=== PATIENT | male | born 1955 | race Caucasian/White ===

== ENCOUNTER 2023-09-24 17:04 | Observation (INO) | payer MEDICARE, SELFPAY ==
[2023-09-24] VITALS (10 sets, daily range): BP systolic 141–165; BP diastolic 85–91; PULSE 90–93; RESP 14–19; TEMP 36.1–36.9; O2SAT 91–97; BMI 34.8; BMI 34.1
--- NOTE | 2023-09-24 | FLU_PTH ---
PATHOLOGY RESULTS PATIENT: ETHEL GODWIN LOC: ICU U#:[id number] AGE/SX: 68/M ROOM: [place] [address] RE09/24/[address]: Dr. Amrita Valente DO : 1955 BED: 1 DIS: 09/25/2023 SPEC #: [id number] RECD: 09/28/23 07:40 STATUS: SYED REQ #: [id number] GERMAN: 09/24/23 00:[address]: Amrita Valente DEPT: CYTOLOGY RECD BY: Angelica Tran ENTERED: 09/28/23 07:41 SP TYPE: Fluid OTHR DR: Dr. Edward Del Angel, DO MD Dr. Inderjit Allen, DO Dr. Guy Kaur, DO MD Dr. Ollie Thomas MD Christina Muller, [employer] REPRESENTATIVE-C Tissues: THORACIC FLUID Procedures: Special Stain Group II Mucicarmine Stain (control) Surgery Specimen Level IV Cytospin Fluid HEADER OPERATION: Thoracentesis PRE-OP DIAGNOSIS: Pleural effusion TISSUE SUBMITTED: Thoracentesis fluid for cytology DIAGNOSIS CYTOLOGY Thoracentesis fluid for cytology (cytospin and cell block): Negative for malignant cells. See comment. AM:michelle 09/29/2023 COMMENT Immunohistochemistry ([id number]) supports the above diagnosis. Mucin stain with matched control was used in the evaluation of this case. CYTOLOGY STUDY Slides are reviewed. CYTOLOGY GROSS Received is 1000 ml of dark red cloudy fluid labeled with the patient's name and and designated per the requisition as thoracentesis. Submitted for cytology preparation including cell block. / michelle 09/28/2023 TC:5 CPT: 54015, 27596, 39407
--- NOTE | 2023-09-24 | IMM_PTH ---
PATHOLOGY RESULTS PATIENT: ETHEL GODWIN LOC: ICU U#:[id number] AGE/SX: 68/M ROOM: [place] [address] RE09/24/[address]: Dr. Amrita Valente DO : 1955 BED: 1 DIS: 09/25/2023 SPEC #: [id number] RECD: 09/29/23 14:42 STATUS: SOUT REQ #: [id number] GERMAN: 09/24/23 00:[address]: Amrita Valente DEPT: IMMUNOHISTOCHEMISTRY RECD BY: Pauline Cassidy ENTERED: 09/29/23 14:43 SP TYPE: IMMUNO OTHR DR: Dr. Edward Del Angel, DO MD Dr. Inderjit Allen, DO Dr. Guy Kaur, DO MD Dr. Ollie Thomas MD Christina Muller, [employer]ADLE-C Tissues: THORACIC FLUID Procedures: Boubacar Ret (add) CK20 (add) CK5-6 (add) CK7 (add) KI-67 (add) P53 (add) Pankeratin (initial) P40 (add) CD68 (ADD) PHYSICIAN & INSTITUTION [place] [id number] SPECIMEN INFORMATION: Tissue Source: Thoracentesis fluid Clinical Info: Pleural effusion Specimen Number: [id number] CPT code: 31093, 75064 x8 METHODOLOGY: Deparaffinized sections of prefer/formalin-fixed tissue or PAP/DQ stained slides are incubated with monoclonal/polyclonal antibodies/oligonucleotide probes. Localization is made via biotin free immunoperoxidase method. Appropriate controls are performed and reacted as expected. Results on target cell population are indicated in the following table: RESULTS: ANTIBODY / CLONE RESULT AE1-3 (AE1/AE3/PCK26) positive CK7 (OV-TL12/30) positive, rare CK20 (KS20.8) negative CD68 (KP-1) positive CALRET (polyclonal) positive CK5-6 (D5 & 1684) positive P40 (BC28) negative P53 (DO-7) negative Ki-67 (30-9) negative These tests were developed and their performance characteristics determined by [facility]. They may not have been cleared or approved by the U.S. Food and Drug Administration. The FDA has determined that such clearance or approval is not necessary. The above immunohistochemical/dualISH markers are ordered and reviewed by the Pathologist. INTERPRETATION: Thoracentesis fluid (cell block): No evidence of malignancy. AM:michelle 09/30/2023
--- NOTE | 2023-09-24 17:25 | EDS_ITS ---
HPI History of Present Illness Chief Complaint: Shortness of Breath [facility] Medical History (Updated 09/24/23 @ 17:25 by Arianna Sparks) Enlarged prostate Hyperlipidemia Hypertension Right rib fracture Home Medications albuterol sulfate 90 mcg/actuation aerosol inhaler inhalation PRN shortness of breath or wheezing 09/24/23 [History Last Taken Unknown] amlodipine 10 mg-benazepril 40 mg capsule 1 cap PO DAILY 09/24/23 [History Last Taken Unknown] aspirin 81 mg capsule 81 mg PO DAILY 09/24/23 [History Last Taken Unknown] azithromycin 250 mg tablet 250 mg PO DAILY 09/24/23 [History Last Taken Unknown] prednisone 10 mg tablet mg 09/24/23 [History Last Taken Unknown] tamsulosin 0.4 mg capsule 0.4 mg PO Q24H 09/24/23 [History Last Taken Unknown] Allergy/AdvReac Type Severity Reaction Status Date / Time ibuprofen [From Motrin] Allergy Hives Verified 09/24/23 17:05 Social History Smoking Status: Former smoker EXAM Physical Exam Const Vital Signs: 09/24/23 17:05 09/24/23 17:04 09/24/23 17:47 Temperature 97 F L Temperature Source Temporal Pulse Rate 90 Respiratory Rate 14 Respiratory Effort Normal Non-Labored Respiratory Depth Normal Respiratory Pattern Normal Blood Pressure 141/87 H Blood Pressure Mean 105 Pulse Ox 94 94 Oxygen Delivery Method Room Air Room Air Room Air [facility] MDM Narrative Medical decision making narrative: HISTORY OF PRESENT ILLNESS: 68-year-old male here with shortness of breath. States he had x-ray earlier today was told by his doctor he has fluid in the right lung. No shortness of breath and cough is additional symptoms. States he broke 7 ribs in July had a partial lung collapse on that side. REVIEW OF SYSTEMS: Pertinent positives: Shortness of breath, cough Pertinent negatives: Fever, fatigue chest pain, syncope PHYSICAL EXAM: Nursing triage notes reviewed, Vital signs reviewed Constitutional: please see mdm HENT: MMM Eyes: Pupils equal round and reactive to light, Extraocular muscles intact Neck: No stridor, no JVD, full neck ROM Lungs: diminished breath sounds of the right lung base n, No wheezing or rales. No increased work of breathing, no conversational dyspnea, no accessory muscle use, no nasal flaring. No respiratory distress noted Heart: Regular rate and rhythm, No murmurs, No rubs and No gallops, 2+ distal pulses (radial, femoral, posterior tibial) in all extremities Abdomen: Soft, there is no tenderness, rigidity, rebound or guarding, no obvious peritoneal signs, no palpable pulsatile abdominal masses, no auscultated abdominal bruit : No CVAT Extremities: No edema Neuro: No focal neurological deficits, cranial nerves II through XII intact, 5/5 strength in all extremities. Intact sensation to light touch in all extremities, 2+ reflexes bilateral patella tendons. Normal gait. No ataxia. Skin: No rash or lesions noted MEDICAL DECISION MAKING: Chief Complaint: Shortness of breath, cough External records reviewed: Chest x-ray from today reviewed showed right-sided pleural effusion, right middle lower lobe, right-sided rib fractures Factors affecting care: enLarged prostate right rib fracture, hyperlipidemia, hypertension, Social determinants of health: none History obtained from others: none Consults: none [facility] Narrative: The patient was initially hemodynamically stable, afebrile, [id number]. Diminished sounds over right lung base. I considered the following differential diagnosis: Pleural effusion, mass, pneumonia I obtained labs rule out signs of anemia, signs of systemic inflammation. I obtained a CT scan to rule out mass or other etiology causing the pleural effusion ALL IMAGES (IF OBTAINED) HAVE BEEN PERSONALLY REVIEWED AND INTERPRETED BY MYSELF. EKG with normal sinus rhythm, right deviation, right bundle branch block, no obvious STEMI CBC without leukocytosis, severe anemia, no thrombocytopenia. BMP without evidence of significant electrolyte abnormalities, no anion gap, no acute kidney injury. Coags not obvious coagulopathy High-sensitivity troponin is negative, no evidence of myocardial ischemia BNP within normal limits this is not suggestive of heart failure CT scan of the patient's chest showed no evidence of mass. The synthesis of the patient's history, physical exam, labs images suggest right-sided pleural effusion of unknown cause could be traumatic. No sign of mass on CT. Patient was ambulated with noted hypoxia. Given hypoxia be admitted. Did discuss the case with Dr. Cruz (critical care physician). He recommended checking coags and admitting the patient and he will be more than happy to do an inpatient thoracentesis. I discussed this with the hospitalist Dr. Del Angel. The patient and/or family, caregivers express understanding. The patient and/or family, caregivers agrees with the plan. Shared decision making: I will have a discussion with the patient and or visitors regarding risk/benefits of further testing or admission. They will be made aware of of the risk/benefits inherent in this decision they will be given the opportunity to voice understanding. Total critical care time today provided was at least 0 minutes. This excludes separately billable procedures. Critical care time (if documented) is secondary to the patient having high probability of clinically significant/life threatening deterioration in the patient's condition which required my urgent intervention. Impression: 1. Hypoxia 2. Right pleural effusion Dispo: Admit to [facility] Lab Data Labs: Laboratory Results - last 24 hr 09/24/23 17:28 WBC 8.2 RBC 4.67 Hgb 15.0 Hct 43.9 MCV 94.0 MCH 32.1 H MCHC 34.2 RDW Std Deviation 39.8 RDW Coeff of Namrata 11.5 L Plt Count 282 MPV 10.1 Immature Gran % (Auto) 0.400 Neut % (Auto) 90.7 H Lymph % (Auto) 7.4 L Catron % (Auto) 1.2 Eos % (Auto) 0.1 Baso % (Auto) 0.2 Absolute Neuts (auto) 7.4 Absolute Lymphs (auto) 0.61 L Nucleated RBC % 0 PT 13.7 INR 1.1 APTT 31.8 Sodium 139 Potassium 3.9 Chloride 106 Carbon Dioxide 27.0 Anion Gap 6 BUN 13 Creatinine 0.83 Estim Creat Clear Calc 91.98 Est GFR (MDRD) Af Amer 119 Est GFR (MDRD) Non-Af 98 BUN/Creatinine Ratio 15.6 Glucose 190 H Calcium 9.6 Troponin I High Sens 5 B-Natriuretic Peptide 8.5 Radiography Diagnostic Testing: Clinical Impression(s) from Imaging Studies Chest CT 09/24/23 17:47 IMPRESSION: 1. Large right pleural effusion. Associated airspace disease may be atelectasis and/or pneumonia. 2. There are multiple fractures of the right second through ninth ribs and the right 11th rib with early callus formation indicating healing. There are multiple chronic healed fractures of the left-sided ribs. Electronically Signed: Christiano Rivero DO at 18:41 EST , Discharge Plan Triage Chief Complaint: Shortness of Breath ED Provider: Juan Manuel Chong Dx/Rx/DC Orders Prescriptions: No Action amlodipine-benazepril 10-40 mg capsule 1 cap PO DAILY aspirin 81 mg capsule 81 mg PO DAILY tamsulosin 0.4 mg capsule 0.4 mg PO Q24H albuterol sulfate 90 mcg/actuation HFA aerosol inhaler INHALATION PRN (Reason: shortness of breath or wheezing) prednisone 10 mg tablet azithromycin 250 mg tablet 250 mg PO DAILY Primary Care Provider: Guy Kaur Referrals: Guy Kaur DO [Primary Care Provider] -
--- NOTE | 2023-09-24 17:47 | CT_ITS ---
EXAM: CT CHEST WITHOUT INTRAVENOUS CONTRAST CLINICAL INDICATION: right sided pleural effusion TECHNIQUE: Helically acquired images were obtained of the chest without intravenous contrast. This CT exam was performed using one or more of the following dose reduction techniques: automated exposure control, adjustment of the mA and/or kV according to patient size, and/or use of iterative reconstruction technique. COMPARISON: Chest radiograph on the same date. FINDINGS: LUNGS AND PLEURAL SPACES: Large right pleural effusion. Associated airspace disease may be atelectasis and/or pneumonia. The left lung is clear. No mass. HEART: Coronary artery calcifications and/or stents. Heart size is normal. No pericardial effusion. MEDIASTINUM: No significant abnormality. No mediastinal or hilar adenopathy. Esophagus is unremarkable. No hiatal hernia. THYROID: No significant abnormality. No thyroid lesions. BONES/JOINTS: There are multiple fractures of the right second through ninth ribs and the right 11th rib with early callus formation indicating healing. There are multiple chronic healed fractures of the left-sided ribs. No suspicious lytic or blastic abnormality. VASCULATURE: Atherosclerosis of the aorta. ABDOMEN: Left renal cyst for which no follow-up is indicated. CT/Chest without Contrast IMPRESSION: 1. Large right pleural effusion. Associated airspace disease may be atelectasis and/or pneumonia. 2. There are multiple fractures of the right second through ninth ribs and the right 11th rib with early callus formation indicating healing. There are multiple chronic healed fractures of the left-sided ribs. Electronically Signed: Christiano Rivero DO at 18:41 EST ,
[2023-09-24 18:14] LABS: Absolute Lymphocyte Count 0.61 X10^3/uL (0.83-4.51); Absolute Neutrophil Count 7.4 X10^3/uL (2.0-7.7); Basophil# 0.02 X10^3/uL; Basophil% 0.2 % (0-1); Eosinophil# 0.01 X10^3/uL; Eosinophils% 0.1 % (0-5); Hematocrit 43.9 % (40-54); Lymphocyte # 0.61 X10^3/ul (0.83-4.51); Lymphocyte % 7.4 % (19-41); Mean Corp Hgb Conc 34.2 g/dL (32-36); Mean Corpuscular Hgb 32.1 pg (27.0-32.0); Mean Platelet Vol. 10.1 fl (6.2-12.0); Monocyte% 1.2 % (0-10); NRBC Flagged by Analyzer 0 % (0-5); Neutrophil # 7.44 X10^3/uL (2.7-7.7); Neutrophil % 90.7 % (47-70); Platelet Count 282 K/mm3 (150-450); RBC Distribution Width CV 11.5 % (11.6-14.6); RBC Distribution Width SD 39.8 fl (35.1-43.9); Red Blood Count 4.67 M/mm3 (4.6-6.2); White Blood Count 8.2 K/mm3 (4.4-11.0)
[2023-09-24 18:33] LABS: Anion Gap 6 (5-15); BUN 13 mg/dL (7-18); BUN/Creat Ratio 15.6 RATIO (10-20); Calcium,Total 9.6 mg/dL (8.5-10.1); Chloride 106 mmol/L (98-107); Creatinine, Serum 0.83 mg/dL (0.70-1.30); EST Glomerular Filtration Rate 98 mL/min (>60); Est Glom Filt Rate - Afr Amer 119 mL/min (>60); Estimated Creatinine Clearance 91.98 ml/min; Glucose 190 mg/dL (74-106); Potassium 3.9 mmol/L (3.5-5.1); Sodium Level 139 mmol/L (136-145); Troponin-I HS 5 pg/mL (3.0-78.0)
[2023-09-24 18:36] LABS: BNP,B-Type NATRIURETIC PEPTIDE 8.5 pg/mL (0-100)
[2023-09-24 18:48] LABS: International Normalized Ratio 1.1; Prothrombin Time (Protime)PT. 13.7 SECONDS (11.7-14.9)
[2023-09-24 18:51] LABS: Partial Thromboplast Time 31.8 Seconds (24.1-36.2)
--- NOTE | 2023-09-24 19:15 | PCM.HP.STD ---
HPI - General General Date of Admission: 09/24/23 Date of Service: 09/24/23 Chief Complaint: Shortness of breath with exertion HPI Narrative ETHEL GODWIN, is a 68 M who presented to [facility] ED on 09/24/2023 with worsening shortness of breath on exertion. Patient seen at bedside in the ED, present. Patient suffered right-sided rib fractures reportedly from ribs 3 through 9 back in July after a fall. Patient and were in [place] at the time, which is where they originally from. They went to an ED in [place], where he was diagnosed with rib fractures. No surgical intervention was needed and patient was discharged from the ED. Patient and returned to [place] shortly after that. They state that for the first few weeks, the patient was in bed or in his chair at home, was not able to do much at all for himself due to significant right-sided pain. However, he has had good improvement over the last 2 to 3 weeks. This week he was able to drive himself to see his PCP in [place], and he has been able to maneuver the steps without significant issue. He developed shortness of breath with exertion over the last few days, and it worsened to the point where he felt like he needed to come into the ED for further evaluation. On my interview, patient was sitting uncomfortably in bed, conversing normally, in no acute distress. He was satting in the high 90s on 2 L nasal cannula at rest, no increased work of breathing noted. Patient denies any fevers or chills, chest pain at rest, abdominal pain or discomfort. Denies any history of heart failure. Patient has no other acute concerns at this time. [facility] Medical History (Updated 09/24/23 @ 20:[address] Edward Del Angel, ) Enlarged prostate Hyperlipidemia Hypertension Right rib fracture Home Medications albuterol sulfate 90 mcg/actuation aerosol inhaler inhalation PRN shortness of breath or wheezing 09/24/23 [History Last Taken Unknown] amlodipine 10 mg-benazepril 40 mg capsule 1 cap PO DAILY 09/24/23 [History Last Taken Unknown] aspirin 81 mg capsule 81 mg PO DAILY 09/24/23 [History Last Taken Unknown] azithromycin 250 mg tablet 250 mg PO DAILY 09/24/23 [History Last Taken Unknown] prednisone 10 mg tablet mg 09/24/23 [History Last Taken Unknown] tamsulosin 0.4 mg capsule 0.4 mg PO Q24H 09/24/23 [History Last Taken Unknown] Allergy/AdvReac Type Severity Reaction Status Date / Time ibuprofen [From Motrin] Allergy Hives Verified 09/24/23 17:05 Social History Smoking Status: Former smoker ROS Constitutional Constitutional: Denies chills, fatigue, fever(s) or weakness Eyes Eyes: Denies change in vision ENT HEENT: Denies sinus pressure Cardiovascular Cardiovascular: Reports dyspnea on exertion; Denies chest pain, edema, lightheadedness, orthopnea or rapid heart rate Respiratory/Chest Respiratory/Chest: Denies cough, productive cough, shortness of breath at rest or wheezing Gastrointestinal Gastrointestinal: Denies abdominal pain Genitourinary Genitourinary: Denies dysuria Musculoskeletal Musculoskeletal: Reports other Details: Right-sided lateral rib pain ; Denies back pain Neurologic Neurologic: Denies dizziness, focal weakness or headache(s) Vital Signs Vital Signs Vital Signs: 09/24/23 17:05 09/24/23 17:04 09/24/23 17:47 Temperature 97 F L Temperature Source Temporal Pulse Rate 90 Respiratory Rate 14 Respiratory Effort Normal Non-Labored Respiratory Depth Normal Respiratory Pattern Normal Blood Pressure 141/87 H Blood Pressure Mean 105 Pulse Ox 94 94 Oxygen Delivery Method Room Air Room Air Room Air Weight Weight: 113.2 kg Body Mass Index (BMI) 34.8 Physical Exam Const alert, oriented x3, no apparent distress, healthy appearing and well nourished Constitutional Narrative: Pleasant elderly male, obese, sitting up comfortably in bed, conversing normally, no acute distress. General Appearance: cooperative, comfortable, well kempt and well developed HEENT normocephalic, head/scalp atraumatic, hearing grossly normal bilaterally, nasal mucous membranes and turbinates normal and moist oral mucous membranes Eyes PERRL, EOMs intact bilaterally and conjunctivae normal Neck full ROM, no lymphadenopathy and supple Lymph Lymphatic: no lymphadenopathy noted Chest Chest Narrative: Mild tenderness to palpation in right lateral rib area diffusely. Resp Resp Narrative: Significantly decreased to absent breath sounds in right lower lung. Otherwise, good air movement throughout. Satting in high 90s on 2 L nasal cannula, no increased work of breathing noted. Cardio regular rate, regular rhythm, no murmurs and peripheral pulses 2+ throughout GI normal to inspection, nondistended, normoactive bowel sounds, soft to palpation, non-tender and non-distended Back/Spine normal ROM Extremity normal to inspection, full ROM and no pedal edema Skin no rashes or lesions noted Neuro moves all extremities and no focal motor deficits Speech: speech normal Psych mental status grossly normal Results Lab / Micro Data 09/24/23 17:28 09/24/23 17:28 Labs: Laboratory Results - last 24 hr 09/24/23 17:28: WBC 8.2, RBC 4.67, Hgb 15.0, Hct 43.9, MCV 94.0, MCH 32.1 H, MCHC 34.2, RDW Std Deviation 39.8, RDW Coeff of Namrata 11.5 L, Plt Count 282, MPV 10.1, Immature Gran % (Auto) 0.400, Neut % (Auto) 90.7 H, Lymph % (Auto) 7.4 L, Ford % (Auto) 1.2, Eos % (Auto) 0.1, Baso % (Auto) 0.2, Absolute Neuts (auto) 7.4, Absolute Lymphs (auto) 0.61 L, Nucleated RBC % 0, PT 13.7, INR 1.1, APTT 31.8, Sodium 139, Potassium 3.9, Chloride 106, Carbon Dioxide 27.0, Anion Gap 6, BUN 13, Creatinine 0.83, Estim Creat Clear Calc 91.98, Est GFR (MDRD) Af Amer 119, Est GFR (MDRD) Non-Af 98, BUN/Creatinine Ratio 15.6, Glucose 190 H, Calcium 9.6, Troponin I High Sens 5, B-Natriuretic Peptide 8.5 Imagaing Radiology Impression Chest CT 09/24/23 17:47 IMPRESSION: 1. Large right pleural effusion. Associated airspace disease may be atelectasis and/or pneumonia. 2. There are multiple fractures of the right second through ninth ribs and the right 11th rib with early callus formation indicating healing. There are multiple chronic healed fractures of the left-sided ribs. Electronically Signed: Christiano Rivero DO at 18:41 EST , Assessment & Plan Assessment/Plan (1) Pleural effusion, right: PLAN: Plan Patient is a 68-year-old male who presented to [facility] ED on 09/24/2023 with worsening shortness of breath on exertion. 1. Large right pleural effusion with exertional hypoxia Very likely secondary to recent right-sided rib fractures. Chest x-ray and CT chest on admit both showed large right pleural effusion with compression atelectasis of right middle and lower lobes. Desaturated to 84% on room air with exertion. ? Admit under observation status to [facility]. Dr. Chong discussed with Dr. Cruz with Pulm, who will be able to do the thoracentesis tomorrow. Patient bedded in ICU per Dr. Cruz's request for ease in having equipment available to complete bedside thoracentesis. Coags ordered. Holding home baby aspirin for tomorrow, okay to restart at discharge. Will likely need ambulatory O2 evaluation prior to discharge to ensure no need for supplemental oxygen going home. 2. Recent right-sided rib fractures Secondary to trauma and July. Chest x-ray and CT chest on admit showed multiple fractures of right second through ninth ribs and right 11th rib with early callus formation indicating healing. ? Patient recovering well, no need for therapy services while here. Will be okay for home on discharge, can follow-up with PCP to discuss outpatient physical therapy as needed. Tylenol as needed for pain management. Chronic medical conditions: ? Obesity: BMI 34 on admit. Encouraged lifestyle modifications. Complicates hospital course, care and prognosis. ? Hypertension: Continue home amlodipine and MOHINI inhibitor. Holding home baby aspirin for tomorrow, okay to restart on discharge. ? BPH: Continue home Flomax. ? Hyperlipidemia: Continue home pravastatin. ? GERD: Continue home PPI. DVT prophylaxis: SCDs CODE STATUS: Full code, verified Expected disposition: Home, 1 to 2 days Total clinical time spent by myself addressing the patient's medical issues, reviewing all the data, and collaborating with patient's care team: 55 minutes. Charges/Coding Visit Charges Inpatient E&M: 48900 Init Hosp L2
--- OUTSIDE RECORDS SUMMARY | 2023-09-24 20:47 | XMS RPT_ITS | CCD ---
Author Name Unknown Address [address] [facility] [address] [place] [address] Organization [facility] Care Team Providers Care Supervisor Fleshing Name Role Phone Unavailable Primary Care Provider UnavailVasyl Matute Primary Care Provider Abdirahman Sierra MD Unavailable Vasyl Glynn DO Primary Care Provider Vasyl Glynn DO Primary Care [facility] er Vasyl Glynn DO Primary Care [facility] er VASYL GLYNN Attending VASYL Bowles Primary Care VASYL Bowles Primary Care VASYL Bowles Referring VASYL Bowles Primary Care VASYL Bowles Referring Sasha GLYNN VASYLGREGORIA BLANCO Attending Sasha olmstead Allergies Allergy Classification Reported Allergen(s) Allergy Type Date of Onset Reaction(s) Facility (11 sources) Ibuprofen; Translations: [IBUPROFEN] Drug Allergy 11-30-2018 Unknown [facility] Work Phone: Medications Current Medications Medication Drug Class(es) Dates Sig (Normalized) Sig (Original) ciprofloxacin 500 mg oral tablet (1 source) Quinolone Antimicrobial take 1 tablet by mouth every twelve hours ciprofloxacin (CIPRO) 500 MG tablet Cipro 500 mg tablet Take 1 tablet every 12 hours by oral route for 14 days. 0 Active docusate sodium 100 mg oral capsule (1 source) Start: 03-22-2023 End: 06-20-2023 take 1 capsule by mouth once daily docusate sodium (COLACE) 100 mg capsule Indications: Chronic constipation Take 1 capsule by mouth once daily. 90 capsule 3 03/22/2023 06/20/2023 Active Completed/Discontinued Medications Medication Drug Class(es) Dates Sig (Normalized) Sig (Original) acetaminophen 325 mg / HYDROcodone bitartrate 7.5 mg oral tablet (3 sources) Opioid Agonist Start: 09-02-2023 End: 09-06-2023 take 1 tablet by mouth every six hours as needed for pain HYDROcodone-Aceta minophen (NORCO) 7.5-325 mg per tablet Indications: Closed fracture of multiple ribs of right side, initial encounter Take 1 tablet by mouth every 6 hours as needed for pain. 16 tablet 0 09/06/2023 Active Problems Active Problems Problem Classification Problem Date Documented Da te Episodic/Chronic Disorders of lipid metabolism (13 sources) Mixed hyperlipidemia; Translations: [Mixed hyperlipidemia] Onset: 10-25-2020 10-25-2020 Chronic Essential hypertension (14 sources) Benign essential hypertension; Translations: [Essential (primary) hypertension] Onset: 10-25-2020 10-25-2020 Chronic Gout and other crystal arthropathies (10 sources) Chronic gouty arthritis; Translations: [Primary chronic gout without tophus of multiple sites] Onset: 10-25-2020 10-25-2020 Chronic Hyperplasia of prostate (15 sources) Benign prostatic hyperplasia; Translations: [Urinary frequency due to benign prostatic hypertrophy] Onset: 11-30-2018 10-25-2020 Chronic Other fractures (1 source) Closed fracture of multiple right ribs; Translations: [Multiple fractures of ribs, right side, initial encounter for closed fracture] 09-03-2023 Episodic Other gastrointestinal disorders (1 source) Chronic constipation; Translations: [Other constipation] Episodic Other nervous system disorders (1 source) Carpal tunnel syndrome; Translations: [Carpal tunnel syndrome, right upper limb] Onset: 12-18-2021 12-18-2021 Chronic Other skin disorders (1 source) Mass of skin; Translations: [Localized swelling, mass and lump, left upper limb] Onset: 12-18-2021 12-18-2021 Episodic Unclassified (6 sources) Patient encounter status; Translations: [Screening for prostate cancer] Onset: 10-25-2020 10-25-2020 Past or Other Problems Problem Classification Problem Date Documented Da te Episodic/Chronic Genitourinary symptoms and ill-defined conditions (2 sources) Nikko hematuria; Translations: [Frequency of micturition] Onset: 11-30-2018 11-30-2018 Episodic Other diseases of kidney and ureters (1 source) Cyst of kidney Onset: 11-30-2018 11-30-2018 Episodic Other gastrointestinal disorders (1 source) Other constipation; Translations: [Chronic constipation] Onset: 03-22-2023 Episodic Other screening for suspected conditions (not mental disorders or infectious disease) (20 sources) Raised prostate specific antigen; Translations: [Patient encounter status] Onset: 11-30-2018 Episodic Unclassified (1 source) Problem Results Test Name Value Interpretation Reference Range Facil ity Vital Signs Date Time Vital Sign Value Performing Clinician Facility 03-22-2023 11:25-0400 Body height 180.3 cm [facility] Work Phone: [facility] 03-22-2023 11:25-0400 Body weight 111.58 kg [employer] Work Phone: [facility] 03-22-2023 11:25-0400 Diastolic blood pressure 80 mm[Hg] [place] Work Phone: [facility] 03-22-2023 11:25-0400 Heart rate 83 /min [place] Work Phone: [facility] 03-22-2023 11:25-0400 SaO2% (BldA) [Mass fraction] 96 % [place] Work Phone: [facility] 03-22-2023 11:25-0400 Systolic blood pressure 150 mm[Hg] [employer] DO Work Phone: [facility] 10-05-2022 13:24-0500 Body height 180.3 cm Medypal DO Work Phone: [facility] 10-05-2022 13:24-0500 Body temperature 98.49 [degF] [place] Work Phone: [facility] 10-05-2022 13:24-0500 Body weight 113.85 kg [facility] DO Work Phone: [facility] 10-05-2022 13:24-0500 Diastolic blood pressure 80 mm[Hg] [facility] 10-05-2022 13:24-0500 Heart rate 71 /min [facility] Work Phone: [facility] 10-05-2022 13:24-0500 SaO2% (BldA) [Mass fraction] 97 % [facility] DO Work Phone: [facility] 10-05-2022 13:24-0500 Systolic blood pressure 148 mm[Hg] [facility] DO Work Phone: [facility] 10-25-2020 08:40-0500 BP Diastolic 90 mm[Hg] [facility] ic 10-25-2020 08:40-0500 BP Systolic 142 mm[Hg] [facility] ic 10-25-2020 08:12-0500 Body Temperature 96.8 [degF] [facility] 10-25-2020 08:12-0500 Body weight 113.4 kg [facility] ic 10-25-2020 08:12-0500 Height 180.3 cm [facility] 10-25-2020 08:12-0500 Pulse (Heart Rate) 78 /min [facility] 10-25-2020 08:12-0500 Pulse Oximetry 98 % [facility] ic NEGATED: Highlighted [id number] 10:57-0400 Body height 177.8 cm Cora Lance RN [facility] Work Phone: NEGATED: Highlighted [id number] 10:57-0400 Body height 178 cm Cora Lance RN [facility] Work Phone: NEGATED: Highlighted [id number] 10:57-0400 Body mass index (BMI) [Ratio] 36 kg/m2 Cora Lance RN [facility] Work Phone: NEGATED: Highlighted [id number] 10:57-0400 Body weight 113.4 kg Cora Lance RN [facility] Work Phone: NEGATED: Highlighted [id number] 10:57-0400 Body weight 114 kg Cora Lance RN [facility] Work Phone: Encounters Encounter Date Encounter Type Care Provider Facility Start: 09-03-2023 Telephone encounter [place] Glynn DO Work Phone: [facility] Procedures Date Procedure Procedure Detail Performing Clinician Start: 10-06-2022 Lipid 1996 panel - Serum or Plasma Vasyl Glynn DO Work Phone: Start: 12-18-2021 End: 12-18-2021 BP scrn no perf at interval Abdirahman Sierra MD Work Phone: Start: 12-18-2021 End: 12-18-2021 Calc BMI out nrm nico nof/u Abdirahman Sierra MD Work Phone: Start: 12-18-2021 End: 12-18-2021 Current tobacco non-user cad cap copd pv dm Abdirahman Sierra MD Work Phone: Start: 12-18-2021 End: 12-18-2021 Docrev cur meds by gucci Sierra MD Work Phone: Start: 12-18-2021 End: 12-18-2021 Injection therapeutic carpal tunnel Abdirahman Sierra MD Work Phone: Start: 12-18-2021 End: 12-18-2021 Pain neg no plan Abdirahman Sierra MD Work Phone: Start: 12-18-2021 End: 12-18-2021 Patient encounter procedure Abdirahman Sierra MD Work Phone: Start: 12-18-2021 End: 12-18-2021 Triamcinolone acet inj NOS Abdirahman Sierra MD Work Phone: Start: 04-23-2021 Colonoscopy Lucía edouard Start: 10-25-2020 [facility] Start: 01-30-2011 CONVERTED SURGICAL PATHOLOGY Berry Emmett (Hist) Mari Work Phone: NEGATED: Highlighted rowStart: 12-18-2021 End: 12-18-2021 Documentation of current medications Cora Lance RN Plan of Treatment Date Care Activity Detail Author Start: 10-06-2027 Lipid 1996 panel - Serum or Plasma Lipid Screening [facility] Start: 10-06-2027 LIPID SCREEN LIPID SCREEN [facility] Start: 10-06-2027 PROSTATE CANCER SCREENING DISCUSSION PROSTATE CANCER SCREENING DISCUSSION [facility] Start: 05-29-2026 DTaP/Tdap/Td vaccine (2 - Td) DTaP/Tdap/Td vaccine (2 - Td) [facility] Work Phone: Start: 05-29-2026 Urine microalbumin profile [facility] Start: 11-19-2025 LIPID SCREEN LIPID SCREEN [facility] Start: 11-19-2025 PROSTATE CANCER SCREENING DISCUSSION PROSTATE CANCER SCREENING DISCUSSION [facility] Start: 10-06-2025 DIABETES SCREEN DIABETES SCREEN [facility] Start: 10-06-2025 Diabetes Screening Diabetes Screening [facility] Start: 04-23-2024 Colonoscopy COLONOSCOPY [facility] Start: 04-23-2024 COLORECTAL CANCER SCREENING COLORECTAL CANCER SCREENING [facility] Start: 03-22-2024 ANNUAL PCP TEAM CHRONIC DISEASE VISIT ANNUAL PCP TEAM CHRONIC DISEASE VISIT [facility] Start: 11-19-2023 DIABETES SCREEN DIABETES SCREEN [facility] Start: 10-05-2023 ANNUAL PCP TEAM CHRONIC DISEASE VISIT ANNUAL PCP TEAM CHRONIC DISEASE VISIT [facility] Start: 05-28-2023 Influenza vaccination [facility] Start: 09-27-2022 ADVANCE DIRECTIVE DISCUSSION ADVANCE DIRECTIVE DISCUSSION [facility] Start: 09-27-2022 DEPRESSION ASSESSMENT DEPRESSION ASSESSMENT [facility] Start: 09-10-2022 ANNUAL PCP TEAM CHRONIC DISEASE VISIT ANNUAL PCP TEAM CHRONIC DISEASE VISIT [facility] Start: 09-10-2022 Pneumococcal Vaccine: 65+ (2 - PCV) Pneumococcal Vaccine: 65+ (2 - PCV) [facility] Start: 09-10-2022 PNEUMOCOCCAL: 65+ (2 - PCV) PNEUMOCOCCAL: 65+ (2 - PCV) [facility] Start: 05-28-2022 Influenza vaccination INFLUENZA (#1) [facility] Start: 01-19-2022 End: 01-19-2022 Patient encounter procedure Appointment [facility] Work Phone: Start: 12-18-2021 End: 12-18-2021 Patient encounter procedure Appointment [facility] Work Phone: Start: 12-18-2021 End: 12-18-2021 Us compl joint r-t w/image documentation Musculoskeletal ultrasound- nonvascular - left upper extremity [facility] Work Phone: Start: 10-25-2021 Adult depression screening assessment DEPRESSION SCREENING [facility] Start: 09-27-2021 ADVANCE DIRECTIVE DISCUSSION ADVANCE DIRECTIVE DISCUSSION [facility] Start: 09-27-2021 DEPRESSION ASSESSMENT DEPRESSION ASSESSMENT [facility] Start: 05-28-2020 Influenza vaccination INFLUENZA (#1) [facility] Start: 10-09-2019 End: 10-09-2019 Patient encounter procedure 10/09/2019 Office Visit Urology Kyung Carter PA-C [address] [place] [id number] [phone] [facility] [place] Start: 05-28-2019 Influenza vaccination Flu vaccine (#1) [facility] Work Phone: Start: 2016 RSV Vaccine (1 - 1-dose 60+ series) RSV Vaccine (1 - 1-dose 60+ series) [facility] Start: 2011 PROSTATE CANCER SCREENING DISCUSSION PROSTATE CANCER SCREENING DISCUSSION [facility] Start: 2006 Colon cancer screen colonoscopy Colon cancer screen colonoscopy [facility] Work Phone: Start: 2006 Screening for malignant neoplasm of colon [facility] Start: 2006 Shingles Vaccine (1 of 2) Shingles Vaccine (1 of 2) [facility] Work Phone: Start: 08-12-2006 SHINGRIX VACCINE (1 of 2) SHINGRIX VACCINE (1 of 2) [facility] Start: 2001 COLOGUARD (FIT-DNA) COLOGUARD (FIT-DNA) [facility] Start: [address] COLONOGRAPHY [facility] Start: 2001 DIABETES SCREEN DIABETES SCREEN [facility] Start: 2001 FECAL OCCULT BLOOD FECAL OCCULT BLOOD [facility] Start: 2001 SIGMOIDOSCOPY SIGMOIDOSCOPY [facility] Start: 1996 Diabetes screen Diabetes screen [facility] Work Phone: Start: 1996 Lipid screen Lipid screen [facility] Work Phone: Start: 1991 LIPID SCREEN LIPID SCREEN [facility] Start: 1975 Urine microalbumin profile DTAP,TDAP,TD (1 - Tdap) [facility] Start: 1974 ANNUAL PCP TEAM CHRONIC DISEASE VISIT ANNUAL PCP TEAM CHRONIC DISEASE VISIT [facility] Start: 1974 BP CONTROLLED (<130/80) BP CONTROLLED (<130/80) [facility] Start: 1974 HEPATITIS C SCREENING HEPATITIS C SCREENING [facility] Start: 1974 HIV SCREENING HIV SCREENING [facility] Start: 1971 HIV screen HIV screen [facility] Work Phone: Start: 1956 COVID-19 VACCINE (#1) COVID-19 VACCINE (#1) [facility] Start: 1955 ABDOMINAL AORTIC ANEURYSM SCREENING ABDOMINAL AORTIC ANEURYSM SCREENING [facility] Start: 1956 Creatinine monitoring Creatinine monitoring [facility] Work Phone: Start: 1956 Hepatitis C screen Hepatitis C screen [facility] Work Phone: Start: 1956 Potassium monitoring Potassium monitoring [facility] Work Phone: End: 10-25-2021 CBC W Auto Differential panel - Blood CBC + DIFF Lab Routine Benign essential hypertension 1 Occurrences starting 10/25/2020 until 10/25/2021 [facility] Immunizations Immunization Date Immunization Notes Care Provider Mag barrett 09-10-2021 pneumococcal polysaccharide vaccine, 23 valent Lucía Pack [facility] 05-29-2016 tetanus toxoid, redu angel diphtheria toxoid, and acellular pertussis vaccine, adsorbed Lucía Ramone [facility] Payers Date Payer Category Payer Medicare [id number] 2021 Medicare AETNA MEDICARE A ETNA MEDICARE PPO [id number] 2021-Present [phone] [address] [place] [address] PPO [id number] 2021 Medicare [id number] 2021 Medicare [id number] 2018 Unknown BCBS [place] - [place] x xxxxxxxxxxx 2018-Present [address] [place] [address] xxxxxxxxxxxx [id number] 2012 Unknown [employer] CARD PPO [id number] 2012-Present PPO [id number] Social History Date Type Detail Facility Tobacco smoking stat [facility] Unknown if ever smoked [facility] Start: 1955 Sex Assigned At Not on file [employer] Work Phone: Start: 10-23-2020 End: 10-05-2022 Tobacco smoking status NHIS Former smoker [facility] End: 09-27-2007 History of tobacco use Current smoker [employer] Work Phone: Start: 10-23-2020 End: 10-05-2022 Tobacco use and exposure Never used [facility] Start: 10-23-2020 End: 03-22-2023 Alcohol intake Current drinker of alcohol (finding) [employer] Work Phone: Start: 10-23-2020 Alcohol Comment Occasional [facility] Exposure to SARS-CoV -2 (event) Not sure [facility] Start: 12-18-2021 End: 12-18-2021 Assertion Unknown if ever smoked [facility] Work Phone: End: 09-27-2007 History of tobacco use Cigarette Smoker [facility] Start: 1955 Sex Assigned At Male [facility] Start: 10-05-2022 End: 03-22-2023 History of Social function [facility] Start: 10-05-2022 End: 03-22-2023 Tobacco use panel [facility] Adult Depression Screening Assessment 0 [facility] Start: 11-27-2020 Gender identity Identifies as male gender (finding) [facility] Start: 11-27-2020 Sexual orientation Heterosexual (finding) [facility] Clinical Notes 04-23-2021 to 09-03-2023 Telephone Encounter - Gricelda Bishop - 09/03/2023 11:40 AM ESTTelephone Encounter - Sharon Patel LPN - 08/10/2023 9:40 AM Luís Glynn DO - 03/22/2023 1:27 PM EDT Note Date & Type Note Facility 09-03-2023 Miscellaneous Notes Pt called stating his script for Hydrocodone-Acetaminophen (NORCO) 7.5-325 mg. Per tablet taking 1 tablet by mouth every 6 hours as needed for pain DID NOT ARRIVE AT PHARMACY AFTER APT 09/02/2023. Pt's is requesting it be resent kin because he is in pain. Resend to [facility] Elva Bishop documented in this encounter [facility] 08-10-2023 Miscellaneous Notes Never rec'd medication - he changed pharmacy and never received his medication. Order repended. Pt will begin taking medication ALONG with the amlodipin/benazepril in the mornings. He is going to check his bp approx one hour after this medication for a week and MyChart messge them to doctor. He states that his bp has been running in the 140s/80s documented in this encounter [facility] 03-22-2023 Note HNO ID: [id number] Author: Vasyl Glynn DO Service: ? Author Type: Physician Type: Progress Notes Filed: 03/28/2023 9:31 PM Note Text: [facility] [place] Vasyl Glynn DO [address] [place] [address] Date of Evaluation: 03/22/2023 Patient Name: Xavier Price : 1955 Chief Complaint: Patient presents with: Hypertension: 6 month check up Nursing Intake: There are no exam notes on file for this visit. Subjective Mr. Price is a 67 year old male who presents with the following complaint(s): The history is provided by the patient. Hypertension This is a chronic problem. The current episode started more than 1 year ago. Pertinent negatives include no chest pain, headaches, palpitations or shortness of breath. Benign Prostatic Hypertrophy This is a chronic problem. Pertinent negatives include no hematuria. Hypercholesterolemia This is a chronic problem. Pertinent negatives include no chest pain or shortness of breath. Constipation This is a recurrent problem. The stool is described as firm. Review of Systems Constitutional: Negative for fatigue and unexpected weight change. HENT: Negative for nosebleeds. Eyes: Negative for redness and visual disturbance. Respiratory: Negative for apnea, cough and shortness of breath. Cardiovascular: Negative for chest pain, palpitations and leg swelling. Gastrointestinal: Positive for constipation. Genitourinary: Negative for hematuria. Neurological: Negative for dizziness, weakness, light-headedness, numbness and headaches. Hematological: Does not bruise/bleed easily. Psychiatric/Behavioral: The patient is not nervous/anxious. PAST MEDICAL HISTORY Diagnosis Date Benign essential hypertension Benign prostatic hyperplasia Carpal tunnel syndrome Fatigue Gastroesophageal reflux disease without esophagitis Malaise and fatigue Mixed hyperlipidemia Obesity (BMI 30-39.9) Raised prostate specific antigen Upper respiratory infection Vitamin D deficiency PAST SURGICAL HISTORY Procedure Laterality Date COLONOSCOPY GEN ANES 03/16/2016 COLONOSCOPY GEN ANES 09/27/2009 COLONOSCOPY GEN ANES 04/23/2021 FAMILY HISTORY Family history unknown: Yes Social History Tobacco Use Smoking status: Former Types: Cigarettes Quit date: 2006 Years since quittin.4 Smokeless tobacco: Never Vaping Use Vaping Use: Never used Substance Use Topics Alcohol use: Yes Comment: Occasional Current Outpatient Medications Medication Sig aspirin, enteric coated (ASPIRIN, ENTERIC COATED) 81 mg EC tablet Take 81 mg by mouth once daily. amLODIPine-Benazepril 10-40 mg per capsule Take 1 capsule by mouth once daily. tamsulosin (FLOMAX) 0.4 mg Take 1 capsule by mouth once daily. indomethacin (INDOCIN) 50 mg capsule TAKE 1 CAPSULE THREE TIMES A DAY NEEDED Multivitamin capsule Take 1 capsule by mouth once daily. Ascorbic Acid 1,000 mg tablet Take 1,000 mg by mouth once daily. docusate sodium (COLACE) 100 mg capsule Take 1 capsule by mouth once daily. metoprolol succinate ER (TOPROL XL) 50 mg 24 hr tablet Take 1 tablet by mouth once daily. pravastatin (PRAVACHOL) 20 mg tablet Take 1 tablet by mouth once daily. omeprazole (PRILOSEC) 40 mg capsule Take 40 mg by mouth as needed. (Patient not taking: Reported on 10/05/2022) ondansetron orally disintegrating (ZOFRAN ODT) 4 mg disintegrating tablet Take 4 mg by mouth three times daily. (Patient not taking: Reported on 10/05/2022) oxyCODONE ir (OXYIR) 5 mg capsule Take 5 mg by mouth every 6 hours as needed. (Patient not taking: No sig reported) No current facility-administered medications for this visit. I have confirmed and edited as necessary the past medical, family and social histories, HPI, and ROS obtained by others. Objective BP 150/80[recheck per doc[ Pulse 83 Ht 5' 11 (1.80m) Wt 246 lb (111.6kg) SpO2 96% BMI 34.33 kg/(m2). Physical Exam Vitals and nursing note reviewed. Constitutional: General: He is not in acute distress. Appearance: Normal appearance. He is well-developed. He is not ill-appearing. HENT: Head: Normocephalic. Right Ear: Tympanic membrane, ear canal and external ear normal. There is no impacted cerumen. Left Ear: Tympanic membrane, ear canal and external ear normal. There is no impacted cerumen. Nose: Nose normal. Mouth/Throat: Mouth: Mucous membranes are moist. Pharynx: Oropharynx is clear. Uvula midline. No oropharyngeal exudate or posterior oropharyngeal erythema. Eyes: General: Lids are normal. Vision grossly intact. Gaze aligned appropriately. No scleral icterus. Right eye: No discharge. Left eye: No discharge. Extraocular Movements: Extraocular movements intact. Conjunctiva/sclera: Conjunctivae normal. Pupils: Pupils are equal, round, and reactive to light. Ne (more content not included)... [facility] 03-22-2023 History of Presen t illness Narrative Images from the original note were not included. [facility] [address] [place] [address] Date of Evaluation: 03/22/2023 Patient Name: Xavier Price : 1955 Chief Complaint: Patient presents with: Hypertension: 6 month check up Nursing Intake: There are no exam notes on file for this visit. Subjective Mr. Price is a 67 year old male who presents with the following complaint(s): The history is provided by the patient. Hypertension This is a chronic problem. The current episode started more than 1 year ago. Pertinent negatives include no chest pain, headaches, palpitations or shortness of breath. Benign Prostatic Hypertrophy This is a chronic problem. Pertinent negatives include no hematuria. Hypercholesterolemia This is a chronic problem. Pertinent negatives include no chest pain or shortness of breath. Constipation This is a recurrent problem. The stool is described as firm. Review of Systems Constitutional: Negative for fatigue and unexpected weight change. HENT: Negative for nosebleeds. Eyes: Negative for redness and visual disturbance. Respiratory: Negative for apnea, cough and shortness of breath. Cardiovascular: Negative for chest pain, palpitations and leg swelling. Gastrointestinal: Positive for constipation. Genitourinary: Negative for hematuria. Neurological: Negative for dizziness, weakness, light-headedness, numbness and headaches. Hematological: Does not bruise/bleed easily. Psychiatric/Behavioral: The patient is not nervous/anxious. PAST MEDICAL HISTORY Diagnosis Date Benign essential hypertension Benign prostatic hyperplasia Carpal tunnel syndrome Fatigue Gastroesophageal reflux disease without esophagitis Malaise and fatigue Mixed hyperlipidemia Obesity (BMI 30-39.9) Raised prostate specific antigen Upper respiratory infection Vitamin D deficiency PAST SURGICAL HISTORY Procedure Laterality Date COLONOSCOPY GEN ANES 03/16/2016 COLONOSCOPY GEN ANES 09/27/2009 COLONOSCOPY GEN ANES 04/23/2021 FAMILY HISTORY Family history unknown: Yes Social History Tobacco Use Smoking status: Former Types: Cigarettes Quit date: 2006 Years since quittin.4 Smokeless tobacco: Never Vaping Use Vaping Use: Never used Substance Use Topics Alcohol use: Yes Comment: Occasional Current Outpatient Medications Medication Sig aspirin, enteric coated (ASPIRIN, ENTERIC COATED) 81 mg EC tablet Take 81 mg by mouth once daily. amLODIPine-Benazepril 10-40 mg per capsule Take 1 capsule by mouth once daily. tamsulosin (FLOMAX) 0.4 mg Take 1 capsule by mouth once daily. indomethacin (INDOCIN) 50 mg capsule TAKE 1 CAPSULE THREE TIMES A DAY NEEDED Multivitamin capsule Take 1 capsule by mouth once daily. Ascorbic Acid 1,000 mg tablet Take 1,000 mg by mouth once daily. docusate sodium (COLACE) 100 mg capsule Take 1 capsule by mouth once daily. metoprolol succinate ER (TOPROL XL) 50 mg 24 hr tablet Take 1 tablet by mouth once daily. pravastatin (PRAVACHOL) 20 mg tablet Take 1 tablet by mouth once daily. omeprazole (PRILOSEC) 40 mg capsule Take 40 mg by mouth as needed. (Patient not taking: Reported on 10/05/2022) ondansetron orally disintegrating (ZOFRAN ODT) 4 mg disintegrating tablet Take 4 mg by mouth three times daily. (Patient not taking: Reported on 10/05/2022) oxyCODONE ir (OXYIR) 5 mg capsule Take 5 mg by mouth every 6 hours as needed. (Patient not taking: No sig reported) No current facility-administered medications for this visit. I have confirmed and edited as necessary the past medical, family and social histories, HPI, and ROS obtained by others. Objective BP 150/80[recheck per doc[ Pulse 83 Ht 5' 11 (1.80m) Wt 246 lb (111.6kg) SpO2 96% BMI 34.33 kg/(m^2). Physical Exam Vitals and nursing note reviewed. Constitutional: General: He is not in acute distress. Appearance: Normal appearance. He is well-developed. He is not ill-appearing. HENT: Head: Normocephalic. Right Ear: Tympanic membrane, ear canal and external ear normal. There is no impacted cerumen. Left Ear: Tympanic membrane, ear canal and external ear normal. There is no impacted cerumen. Nose: Nose normal. Mouth/Throat: Mouth: Mucous membranes are moist. Pharynx: Oropharynx is clear. Uvula midline. No oropharyngeal exudate or posterior oropharyngeal erythema. Eyes: General: Lids are normal. Vision grossly intact. Gaze aligned appropriately. No scleral icterus. Right eye: No discharge. Left eye: No discharge. Extraocular Movements: Extraocular movements intact. Conjunctiva/sclera: Conjunctivae normal. Pupils: Pupils are equal, round, and reactive to light. Neck: Thyroid: No thyroid mass, thyromegaly or thyroid tenderness. Vascular: No carotid bruit. Trachea: Trachea and phonation normal. Cardiovascular: Rate and Rhythm: Normal rate and regular rhythm. Pulses: Normal pulses. Heart sounds: Normal heart sounds. Pulmonary: Effort: Pulmonary effort is normal. Breath sounds: Normal breath sounds. Abdominal: General: Abdomen is flat. Bowel sounds are normal. Palpations: Abdomen is soft. Musculoskeletal: General: Normal range of motion. Right shoulder: Normal. Left shoulder: Normal. Cervical back: Normal, full passive range of motion without pain and neck supple. No tenderness. No spinous process tenderness. Thoracic back: Normal. Lumbar back: Normal. Right knee: Normal. Left knee: Normal. Right lower leg: No edema. Left lower leg: No edema. Lymphadenopathy: Cervical: No cervical adenopathy. Skin: General: Skin is warm and dry. Neurological: General: No focal deficit present. Mental Status: He is alert and oriented to person, place, and time. Mental status is at baseline. Sensory: Sensation is intact. Motor: Motor function is intact. Psychiatric: Attention and Perception: Attention and perception normal. Mood and Affect: Mood normal. Speech: Speech normal. Behavior: Behavior normal. Thought Content: Thought content normal. Judgment: Judgment normal. Data Reviewed: No new labs ASSESSMENT/PLAN: 1. Benign essential hypertension - ICD9: 401.1, ICD10: I10 (primary diagnosis) - Uncontrolled - Increase metoprolol succinate - Recommend home blood pressure monitoring, to bring results to next visit - Encouraged sodium restriction, DASH or Mediterranean diet - Recommend regular aerobic exercise - METOPROLOL SUCCINATE ER 50 MG TABLET,EXTENDED RELEASE 24 HR 2. Benign prostatic hyperplasia with urinary frequency - ICD9: 600.01, 788.41, ICD10: N40.1, R35.0 3. Mixed hyperlipidemia - ICD9: 272.2, ICD10: E78.2 - Continue current medications - Counseled on healthy diet and regular exercise 4. Chronic constipation - ICD9: 564.00, ICD10: K59.09 - Start colace - DOCUSATE SODIUM 100 MG CAPSULE Vasyl Glynn DO Return in about 6 months (around 09/21/2023). Attestation: Scribe Statement: Lexie Salcedo am scribing for, and in the presence of, Vasyl Glynn DO March 22, 2023 1:27 PM. Physician Statement: I, Vasyl Glynn DO, personally performed the services described in the documentation, as scribed by Christina Salcedo in my presence, and it is both accurate and complete March 22, 2023 2:33 PM. documented in this encounter [facility] 10-08-2022 Miscellaneous Notes Spoke with patient and advised. States he has seen urology before. States he sees one in [place] and is part of the [facility]. He will call and schedule. Advised patient if they are part of [facility] the results will be in the system for review. Patient to call if any issues or problems getting an appointment ----- Message from Vasyl Glynn DO sent at 10/08/2022 9:25 AM EST ----- Psa up uro con documented in this encounter [facility] 10-05-2022 Note HNO ID: [id number] Author: Vasyl Glynn DO Service: ? Author Type: Physician Type: Progress Notes Filed: 10/11/2022 12:45 PM Note Text: [facility] Oneyda Glynn DO [address] [place] [address] Date of Evaluation: 10/05/2022 Patient Name: Xavier Price : 1955 Chief Complaint: Patient presents with: Yearly Exam Nursing Intake: There are no exam notes on file for this visit. Subjective Mr. Price is a 67 year old male who presents with the following complaint(s): The history is provided by the patient. No speech and language clinician was used. Hypertension This is a chronic problem. The current episode started more than 1 year ago. Pertinent negatives include no chest pain, headaches, palpitations or shortness of breath. Benign Prostatic Hypertrophy This is a chronic problem. Pertinent negatives include no hematuria. Past treatments include tamsulosin. The treatment provided significant relief. Review of Systems Constitutional: Negative for fatigue and unexpected weight change. HENT: Negative for nosebleeds. Eyes: Negative for redness and visual disturbance. Respiratory: Negative for apnea, cough and shortness of breath. Cardiovascular: Negative for chest pain, palpitations and leg swelling. Genitourinary: Negative for hematuria. Neurological: Negative for dizziness, weakness, light-headedness, numbness and headaches. Hematological: Does not bruise/bleed easily. Psychiatric/Behavioral: The patient is not nervous/anxious. PAST MEDICAL HISTORY Diagnosis Date Benign essential hypertension Benign prostatic hyperplasia Carpal tunnel syndrome Fatigue Gastroesophageal reflux disease without esophagitis Malaise and fatigue Mixed hyperlipidemia Obesity (BMI 30-39.9) Raised prostate specific antigen Upper respiratory infection Vitamin D deficiency PAST SURGICAL HISTORY Procedure Laterality Date COLONOSCOPY GEN ANES 03/16/2016 COLONOSCOPY GEN ANES 09/27/2009 COLONOSCOPY GEN ANES 04/23/2021 FAMILY HISTORY Family history unknown: Yes Social History Tobacco Use Smoking status: Former Types: Cigarettes Quit date: 2006 Years since quittin.0 Smokeless tobacco: Never Vaping Use Vaping Use: Never used Substance Use Topics Alcohol use: Yes Comment: Occasional Current Outpatient Medications Medication Sig Dispense Refill aspirin, enteric coated (ASPIRIN, ENTERIC COATED) 81 mg EC tablet Take 81 mg by mouth once daily. indomethacin (INDOCIN) 50 mg capsule TAKE 1 CAPSULE THREE TIMES A DAY NEEDED 9 capsule 20 Multivitamin capsule Take 1 capsule by mouth once daily. Ascorbic Acid 1,000 mg tablet Take 1,000 mg by mouth once daily. amLODIPine-Benazepril 10-40 mg per capsule Take 1 capsule by mouth once daily. 90 capsule 3 tamsulosin (FLOMAX) 0.4 mg Take 1 capsule by mouth once daily. 90 capsule 3 omeprazole (PRILOSEC) 40 mg capsule Take 40 mg by mouth as needed. (Patient not taking: Reported on 10/05/2022) ondansetron orally disintegrating (ZOFRAN ODT) 4 mg disintegrating tablet Take 4 mg by mouth three times daily. (Patient not taking: Reported on 10/05/2022) oxyCODONE ir (OXYIR) 5 mg capsule Take 5 mg by mouth every 6 hours as needed. (Patient not taking: No sig reported) No current facility-administered medications for this visit. I have confirmed and edited as necessary the past medical, family and social histories, HPI, and ROS obtained by others. Objective BP 148/80 Pulse 71 Temp 98.5 Ht 5' 11 (1.80m) Wt 251 lb (113.9kg) SpO2 97% BMI 35.02 kg/(m2). Physical Exam Vitals and nursing note reviewed. Constitutional: General: He is not in acute distress. Appearance: Normal appearance. He is well-developed. He is not ill-appearing. HENT: Head: Normocephalic. Right Ear: Tympanic membrane, ear canal and external ear normal. There is no impacted cerumen. Left Ear: Tympanic membrane, ear canal and external ear normal. There is no impacted cerumen. Nose: Nose normal. Mouth/Throat: Mouth: Mucous membranes are moist. Pharynx: Oropharynx is clear. Uvula midline. No oropharyngeal exudate or posterior oropharyngeal erythema. Eyes: General: Lids are normal. Vision grossly intact. Gaze aligned appropriately. No scleral icterus. Right eye: No discharge. Left eye: No discharge. Extraocular Movements: Extraocular movements intact. Conjunctiva/sclera: Conjunctivae normal. Pupils: Pupils are equal, round, and reactive to light. Neck: Thyroid: No thyroid mass, thyromegaly or thyroid tenderness. Vascular: No carotid bruit. Trachea: Trachea and phonation normal. Cardiovascular: Rate and Rhythm: Normal rate and regular rhythm. Pulses: Normal pulses. Heart sounds: Normal heart sounds. Pulmonary: Effort: Pulmonary effort is normal. Breath sounds: Normal b (more content not included)... [facility] 10-05-2022 History of Presen t illness Narrative Images from the original note were not included. [facility] [place] [facility] [address] [place] [address] Date of Evaluation: 10/05/2022 Patient Name: Xavier Price : 1955 Chief Complaint: Patient presents with: Yearly Exam Nursing Intake: There are no exam notes on file for this visit. Subjective Mr. Price is a 67 year old male who presents with the following complaint(s): The history is provided by the patient. No speech and language clinician was used. Hypertension This is a chronic problem. The current episode started more than 1 year ago. Pertinent negatives include no chest pain, headaches, palpitations or shortness of breath. Benign Prostatic Hypertrophy This is a chronic problem. Pertinent negatives include no hematuria. Past treatments include tamsulosin. The treatment provided significant relief. Review of Systems Constitutional: Negative for fatigue and unexpected weight change. HENT: Negative for nosebleeds. Eyes: Negative for redness and visual disturbance. Respiratory: Negative for apnea, cough and shortness of breath. Cardiovascular: Negative for chest pain, palpitations and leg swelling. Genitourinary: Negative for hematuria. Neurological: Negative for dizziness, weakness, light-headedness, numbness and headaches. Hematological: Does not bruise/bleed easily. Psychiatric/Behavioral: The patient is not nervous/anxious. PAST MEDICAL HISTORY Diagnosis Date Benign essential hypertension Benign prostatic hyperplasia Carpal tunnel syndrome Fatigue Gastroesophageal reflux disease without esophagitis Malaise and fatigue Mixed hyperlipidemia Obesity (BMI 30-39.9) Raised prostate specific antigen Upper respiratory infection Vitamin D deficiency PAST SURGICAL HISTORY Procedure Laterality Date COLONOSCOPY GEN ANES 03/16/2016 COLONOSCOPY GEN ANES 09/27/2009 COLONOSCOPY GEN ANES 04/23/2021 FAMILY HISTORY Family history unknown: Yes Social History Tobacco Use Smoking status: Former Types: Cigarettes Quit date: 2006 Years since quittin.0 Smokeless tobacco: Never Vaping Use Vaping Use: Never used Substance Use Topics Alcohol use: Yes Comment: Occasional Current Outpatient Medications Medication Sig Dispense Refill aspirin, enteric coated (ASPIRIN, ENTERIC COATED) 81 mg EC tablet Take 81 mg by mouth once daily. indomethacin (INDOCIN) 50 mg capsule TAKE 1 CAPSULE THREE TIMES A DAY NEEDED 9 capsule 20 Multivitamin capsule Take 1 capsule by mouth once daily. Ascorbic Acid 1,000 mg tablet Take 1,000 mg by mouth once daily. amLODIPine-Benazepril 10-40 mg per capsule Take 1 capsule by mouth once daily. 90 capsule 3 tamsulosin (FLOMAX) 0.4 mg Take 1 capsule by mouth once daily. 90 capsule 3 omeprazole (PRILOSEC) 40 mg capsule Take 40 mg by mouth as needed. (Patient not taking: Reported on 10/05/2022) ondansetron orally disintegrating (ZOFRAN ODT) 4 mg disintegrating tablet Take 4 mg by mouth three times daily. (Patient not taking: Reported on 10/05/2022) oxyCODONE ir (OXYIR) 5 mg capsule Take 5 mg by mouth every 6 hours as needed. (Patient not taking: No sig reported) No current facility-administered medications for this visit. I have confirmed and edited as necessary the past medical, family and social histories, HPI, and ROS obtained by others. Objective BP 148/80 Pulse 71 Temp 98.5 Ht 5' 11 (1.80m) Wt 251 lb (113.9kg) SpO2 97% BMI 35.02 kg/(m^2). Physical Exam Vitals and nursing note reviewed. Constitutional: General: He is not in acute distress. Appearance: Normal appearance. He is well-developed. He is not ill-appearing. HENT: Head: Normocephalic. Right Ear: Tympanic membrane, ear canal and external ear normal. There is no impacted cerumen. Left Ear: Tympanic membrane, ear canal and external ear normal. There is no impacted cerumen. Nose: Nose normal. Mouth/Throat: Mouth: Mucous membranes are moist. Pharynx: Oropharynx is clear. Uvula midline. No oropharyngeal exudate or posterior oropharyngeal erythema. Eyes: General: Lids are normal. Vision grossly intact. Gaze aligned appropriately. No scleral icterus. Right eye: No discharge. Left eye: No discharge. Extraocular Movements: Extraocular movements intact. Conjunctiva/sclera: Conjunctivae normal. Pupils: Pupils are equal, round, and reactive to light. Neck: Thyroid: No thyroid mass, thyromegaly or thyroid tenderness. Vascular: No carotid bruit. Trachea: Trachea and phonation normal. Cardiovascular: Rate and Rhythm: Normal rate and regular rhythm. Pulses: Normal pulses. Heart sounds: Normal heart sounds. Pulmonary: Effort: Pulmonary effort is normal. Breath sounds: Normal breath sounds. Abdominal: General: Abdomen is flat. Bowel sounds are normal. Palpations: Abdomen is soft. Musculoskeletal: General: Normal range of motion. Right shoulder: Normal. Left shoulder: Normal. Cervical back: Normal, full passive range of motion without pain and neck supple. No tenderness. No spinous process tenderness. Thoracic back: Normal. Lumbar back: Normal. Right knee: Normal. Left knee: Normal. Right lower leg: No edema. Left lower leg: No edema. Lymphadenopathy: Cervical: No cervical adenopathy. Skin: General: Skin is warm and dry. Neurological: General: No focal deficit present. Mental Status: He is alert and oriented to person, place, and time. Mental status is at baseline. Sensory: Sensation is intact. Motor: Motor function is intact. Psychiatric: Attention and Perception: Attention and perception normal. Mood and Affect: Mood normal. Speech: Speech normal. Behavior: Behavior normal. Thought Content: Thought content normal. Judgment: Judgment normal. Data Reviewed: No new labs ASSESSMENT/PLAN: 1. Benign essential hypertension - ICD9: 401.1, ICD10: I10 (primary diagnosis) - suboptimal control - Continue current medication(s) - Recommended regular aerobic exercise. - Recommend home blood pressure monitoring, to bring results in on next visit - Goal of BP <130/80 - AMLODIPINE 10 MG-BENAZEPRIL 40 MG CAPSULE 2. Benign prostatic hyperplasia with urinary frequency - ICD9: 600.01, 788.41, ICD10: N40.1, R35.0 -chronic - Continue current medication. - TAMSULOSIN 0.4 MG CAPSULE 3. Mixed hyperlipidemia - ICD9: 272.2, ICD10: E78.2 - to be determined upon return of lab results - Check fasting lipid panel and ALT. - CBC + DIFF - COMP METABOLIC PANEL - LIPID PANEL BASIC - URINALYSIS, WITH MICROSCOPIC 4. Screening for thyroid disorder - ICD9: V77.0, ICD10: Z13.29 - TSH BLD 5. Screening for prostate cancer - ICD9: V76.44, ICD10: Z12.5 - PSA/PROSTSPECAG SCRN Vasyl Glynn DO Return in about 6 months (around 04/04/2023) for medication follow up, Blood pressure check. Attestation: Scribe Statement: I Christina Salcedo am scribing for, and in the presence of, Vasyl Glynn DO October 05, 2022 1:46 PM. Physician Statement: I, Vasyl Glynn DO, personally performed the services described in the documentation, as scribed by Christina Salcedo in my presence, and it is both accurate and complete October 05, 2022 1:54 PM. documented in this encounter [facility] 09-23-2022 Miscellaneous Notes Scheduled for 10/05/2022 Patient last seen 09/10/21 and was to return in 6 months around 03/11/22. Please call and schedule patient for an appt. Thank you. documented in this encounter [facility] 04-02-2022 History of Presen t illness Narrative POPULATION HEALTH NAVIGATION OUTREACH Action/FYI Pt identified by name and : NO Outreach Outcome/Action Unable to reach patient: Left message MyChart message sent Did you use a PCP flex slot to schedule this appointment? N/A Reason for Outreach Care Gap or Scheduling/Wellness visits Payer: Payor: [employer] MEDICARE / Plan: AET MEDICARE PPO / Product Type: PPO / Care Gap Reviewed:: Annual Wellness visit Controlling Blood Pressure Reminder: Reminder note to check Health Maintenance for items below Health Maintenance items due: ABDOMINAL AORTIC ANEURYSM SCREENING Never done COVID-19 VACCINE(1) Never done HEPATITIS C SCREENING Never done HIV SCREENING Never done BP CONTROLLED (<130/80) Never done SHINGRIX VACCINE(1 of 2) Never done ADVANCE DIRECTIVE DISCUSSION Never done DEPRESSION SCREENING due on 10/25/2021 Message Sent to Practice: No Navigation Signature: Lucía Pack April 02, 2022 3:07 PM documented in this encounter [facility] 04-23-2021 Note HNO ID: [id number] Author: Mis Stover RN Service: ? Author Type: Registered Nurse Type: Nursing Progress Note Filed: 04/23/2021 10:34 AM Note Text: Patient states readiness for discharge. Assisted with dressing Dr Ribera at bedside [facility] Evaluation note There may be informa tion available, but it has not been provided by the sender. [facility] Work Phone: documented in this encounter [facility] Work Phone: Evaluation note* Diagnosis Benign prostatic hyperplasia with urinary frequency [facility] Diagnosis Benign essential hypertension- Primary Essential hypertension, benign Benign prostatic hyperplasia with urinary frequency Mixed hyperlipidemia Elevated PSA Elevated prostate specific antigen (PSA) Screening for thyroid disorder Screening for prostate cancer Special screening for malignant neoplasm of prostate [facility] Diagnosis Benign essential hypertension- Primary Essential hypertension, benign Benign prostatic hyperplasia with urinary frequency Mixed hyperlipidemia Chronic constipation Unspecified constipation [facility] Diagnosis Benign essential hypertension Essential hypertension, benign [facility] Diagnosis Closed fracture of multiple ribs of right side, initial encounter [facility] Work Phone: Summary Purpose Family History No Family History Records FoundNo Family History Records FoundThere may be information available, but it has not been provided by the sender.No Family History Records Found Advance Directives No Advanced Directives Records FoundDocuments on File Type Date Recorded Patient [employer] Expl anation Advance Directives and 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 Almost all men will develop some enlargement of the prostate as they age. Who is affected by prostate enlargement? Overall, the number of men with BPH increases progressively with age. By age 60, 50% of men will have some signs of BPH. By age 85, 90% of men will have signs of the condition. About half of these men will develop symptoms that need to be treated. Does having benign prostatic hyperplasia increase your risk of developing prostate cancer? Based on research to date, having BPH does not seem to increase the risk of developing prostate cancer. However, BPH and prostate cancer have similar symptoms, and a man who has BPH may have undetected cancer at the same time. To help detect prostate cancer in its early stages, the [place] [employer] and the [place] [employer] recommend a screening every year for men ages 50 to 70. They further recommend that men who are at high risk -- such as -[place] men and men with a family history of prostate cancer -- begin screening at about age 40. Screening tests for prostate cancer include a blood test for a substance called prostate-specific antigen (PSA) and the digital rectal exam (ONDINA). What are the symptoms of benign prostatic hyperplasia? Since the prostate gland surrounds the urethra (the tube that carries urine outside the body), it is easy to understand that enlargement of the prostate can lead to blockage of the tube. Therefore, you may develop: Slowness or dribbling of your urinary stream Hesitancy or difficulty starting to urinate Frequent urination Feeling of urgency (sudden need to urinate) Need to get up at night to urinate As symptoms progress, you may develop: The enlargement of the prostate can lead to blockage of the urethra. Bladder stones Bladder infection Blood in your urine Damage to your kidneys from back pressure caused by retaining large amounts of extra urine in the bladder Sudden blockage of the urinary tube, making urination impossible How is benign prostatic hyperplasia diagnosed? Your doctor will look at your medical history and give you a complete physical. Your doctor will perform a digital rectal examination by inserting a gloved, lubricated finger into your rectum to feelthe prostate. Because the prostate gland is in front of the rectum, it is relatively easy for the doctor to feel much of the gland. This enables him or her to estimate the size of the prostate and todetect any hard areas that could be cancer. Several studies may be performed to help diagnose your condition: A seven-question survey may be completed to evaluate your symptoms. A flow study may be conducted to measure how slow the urinary stream is compared with normal flow. A study may be conducted to detect how much urine is left in the bladder after urination is completed. In addition, the physician may need to look into the bladder. The procedure is called cystoscopy. How is benign prostatic hyperplasia treated? Patients with mild symptoms may not require treatment other than continued observation to make suretheir condition doesn't get worse. This approach is sometimes called watchful waiting or surveillance. There are a number of treatment options available if your symptoms are severe: Treatments for BPH include: Medication Proscar was one of the first drugs used to treat BPH. It works by slowing the production of the hormone dihydrotestosterone (DHT), which affects the growth of the prostate gland. Proscar appears to be most beneficial for men with larger prostates. Drugs that relax the muscle in the prostate (to reduce the tension on the urine tube) are more commonly used. These include Hytrin, Cardura, and Flomax. The most common side effects are light-headedness and weakness. Surgery A number of surgical procedures have been used to remove the prostate tissue blocking the flow of urine. The most common procedure is called transurethral resection of the prostate (TURP). There are several different variations on this technique. It involves removing the tissue blocking the urethra (urine tube) with a special instrument. Although TURP is an effective treatment, there are potential side effects, including bleeding, infection, impotence (inability to maintain an erection suitable for sex) and incontinence (inability to control the flow of urine). Transurethral electrovaporization: This technique uses electrical energy applied through an electrode to rapidly heat prostate tissue, turning the tissue cells into steam. This allows the doctor to vaporize an area of the enlarged tissue and relieve urinary blockage. The Greenlight laser: This is commonly used to treat BPH and is associated with less bleeding afterthe procedure. Another, less complicated procedure is transurethral incision of the prostate (TUIP). Instead of removing tissue, as with TURP, this approach involves widening the urethra by making several small cuts in the bladder neck (area where the urethra and bladder join), as well as in the prostate gland itself. This relieves some of the pressure on the urethra and improves urine flow. Minimally invasive treatments New treatments have been developed in recent years that can effectively reduce the size of the prostate and relieve urinary blockage, but are less invasive and damaging to healthy tissue than is surgery. In general, minimally invasive procedures require less time in the hospital, result in fewer side effects, are less costly, and allow for quicker recovery. The most common side effects reported with these treatments include urinary frequency and irritation while the prostate is healing. However, many of these techniques are new, and little is known about the long-term effectiveness and complications of these procedures. Minimally invasive treatments include: Transurethral microwave thermotherapy (TUMT): Microwave energy delivers temperatures above 45 degrees C (113 degrees F) to the prostate by way of an antenna positioned in the prostate using a specialcatheter (tube). Another catheter is used to circulate coolant around the urethra, which helps keepyou reasonably comfortable throughout the procedure. The entire procedure is computer-controlled, based on temperature recordings obtained in the urethra and rectum. This technique is performed in your doctor's office and takes approximately 90 minutes. Patients are generally given medicine to prevent pain and relieve anxiety. The most common complaints during the treatment are an urge to urinateand a burning sensation in the penis. There are two programs: standard treatment or high-energy treatment. High-energy treatment delivers more energy to the prostate, which generally provides better results and improved flow, but patients are likely to have more side effects in the recovery period. Transurethral needle ablation (TUNA): This technique uses low-level radiofrequency energy deliveredthrough two needles to ablate, or burn away, an area of the enlarged prostate. References National [place] of Diabetes and Digestive and Kidney Diseases. What I need to know about prostate problems Accessed 11/26/2015. [employer] [place] of Diabetes and Digestive and Kidney Diseases. Medical tests for prostate problems Accessed 11/26/2015. Copyright 6426-2614 The [facility]. All rights reserved This information is provided by the [facility] and is not intended to replace the medical advice of your doctor or health care provider. Please consult your health care provider for advice about a specific medical condition. For additional health information, please contact the Center for Consumer Health Information at the [facility] or toll-free extension [phone]. If you prefer, you may visit [email or web address] or [email or web address]. This document was last reviewed on: 2015 index#9100Hypertension (High Blood Pressure) What is high blood pressure? Blood pressure is the measurement of the pressure or force of blood pushing against blood vessel painter. In hypertension (high blood pressure), the pressure against the blood vessel painter is consistently too high. High blood pressure is often called the silent killer because you may not be aware that anything is wrong, but the damage is occurring within your body. The only way to know if you have high blood pressure is to have your blood pressure taken. It is best to know your numbers and make the changes that can help prevent or limit damage. Understanding BP readings Your blood pressure reading has two numbers. The first is the systolic, which measures the pressureon the blood vessel painter when your heart beats. The second number is the diastolic, which measuresthe pressure on your blood vessels between beats when the heart is at rest. What is a normal blood pressure reading? Blood Pressure Category Systolic mm Hg (upper number) Diastolic mm Hg (lower number) Normal less than 120 and less than 80 Prehypertension 120 139 or 80 89 High Blood Pressure (Hypertension) Stage 1 140 159 or 90 99 High Blood Pressure (Hypertension) Stage 2 160 or higher or 100 or higher Hypertensive Crisis (Emergency care needed) Higher than 180 or Higher than 110 mmHg = millimeters of mercury the unit of measure for blood pressure What can happen if high blood pressure is not treated? Stroke Enlarged heart Heart failure Peripheral vascular disease Heart attack Kidney disease/failure Who is more likely to have high blood pressure? People with family members who have high blood pressure, cardiovascular disease, or diabetes -Americans Women who are Women who take control pills People over 35 People who are overweight People who are not active People who drink a lot of alcohol People who eat too many fatty foods or foods with too much salt People who smoke What should I do if I have high blood pressure? If you have been diagnosed with high blood pressure, you should discuss your target blood pressure with your healthcare provider. Check your own blood pressure at home as recommended. Eat healthy foods that are low in salt and fat. Achieve and maintain your ideal body weight. Limit alcohol to no more than two drinks each day. One drink is defined as 1 oz. of alcohol, 5 oz. of wine, or 12 oz. of beer. Be more physically active. Quit smoking. Work on controlling anger and managing stress. Take high blood pressure medicine if your healthcare provider prescribes it, and follow the healthcare provider's directions carefully. Have regular blood pressure checks by your healthcare provider. What should I include in my diet to control high blood pressure? Eat foods that are lower in fat, salt, and calories, such as skim or 1% milk, fresh vegetables and fruits, and whole grain, rice, and pasta. (Ask your doctor or healthcare provider for a more detailed list of salt-free foods to eat.) Use flavorings, spices, and herbs to make foods tasty without using salt. Avoid or cut down on butter and margarine, regular salad dressings, fatty meats, whole milk dairy products, fried foods, processed foods or fast foods, and salted snacks. Ask your healthcare provider if you should increase potassium in your diet or if you need to take apotassium supplement. Discuss the Dietary Approaches to Stop Hypertension (DASH) diet with your healthcare provider. How can I be more active? Check first with your healthcare provider before increasing your physical activity. Ask your provider what type and amount of exercise is right for you. Choose aerobic activities such as walking, biking, or swimming. Start slowly and increase activity gradually. Aim for a regular routine of activity five times a week for 30 to 45 minutes each session. Activity can be done in 10-minute sessions to add up to the 30-45 minutes total. What should I know about blood pressure medicine? There are many different medicines to treat high blood pressure, and you might need to take medicine from now on. If your healthcare provider tells you to take high blood pressure medicine, be sure to follow the exact directions. Also, ask what side effects can happen with your medicine, and talk to your healthcare provider about any problems or side effects you might have with your medicine. Lastly, do not stop taking the medicine on your own. References National Heart, Lung, and Blood [place]. Description of High Blood Pressure Accessed 03/01/2017. Food and Drug Administration. High Blood Pressure (Hypertension) Accessed 03/01/2017. Centers for Disease Control and Prevention. High blood pressure Accessed 03/01/2017. JNC 8 Guidelines for the Management of Hypertension in Adults. Am Fam Physician. 2013Jun 27;90(7):503-504. [email or web address].org Accessed 03/01/2017. Copyright 6432-8049 The [facility]. All rights reserved This information is provided by the [facility] and is not intended to replace the medical advice of your doctor or health care provider. Please consult your health care provider for advice about a specific medical condition. For additional health information, please contact the [facility] [facility] Information at the [facility] or toll-free extension [phone]. If you prefer, you may visit [email or web address] or [email or web address]. This document was last reviewed on: 2017 index#4314 documented in this encounter History of Present Illness * Fracisco Glynngregoria Blanco - 10/25/2020 8:18 AM EST [facility] [place] Glynn DO [address] [place] [address] Date of Evaluation: 10/25/2020 Patient Name: Xavier Price : 1955 Subjective Mr. Price is a 65 year old male who presents for Rx Refills. The history is provided by the patient. No speech and language clinician was used. Hypertension This is a chronic problem. The current episode started more than 1 year ago. Pertinent negatives include no blurred vision, chest pain, headaches, malaise/fatigue, orthopnea, palpitations, PND or shortness of breath. There are no compliance problems. Benign Prostatic Hypertrophy This is a chronic problem. The current episode started more than 1 year ago. Pertinent negatives include no hematuria. Past treatments include tamsulosin. The treatment provided significant relief. Review of Systems Constitutional: Negative for malaise/fatigue and weight loss. HENT: Positive for tinnitus. Negative for nosebleeds. Eyes: Negative for blurred vision and double vision. Respiratory: Negative for cough and shortness of breath. Cardiovascular: Negative for chest pain, palpitations, orthopnea, claudication, leg swelling and PND. Gastrointestinal: Negative for abdominal pain. Genitourinary: Negative for hematuria. Musculoskeletal: Negative for joint pain and myalgias. Skin: Negative. Neurological: Negative for dizziness, tingling, sensory change, focal weakness, weakness and headaches. Endo/Heme/Allergies: Does not bruise/bleed easily. Psychiatric/Behavioral: Negative for depression. The patient is not nervous/anxious and does not have insomnia. PAST MEDICAL HISTORY Diagnosis Date Benign essential hypertension Benign prostatic hyperplasia Fatigue Gastroesophageal reflux disease without esophagitis Malaise and fatigue Mixed hyperlipidemia Obesity (BMI 30-39.9) Raised prostate specific antigen Upper respiratory infection Vitamin D deficiency PAST SURGICAL HISTORY Procedure Laterality Date COLONOSCOPY GEN ANES 03/16/2016 COLONOSCOPY GEN ANES 09/27/2009 FAMILY HISTORY Family history unknown: Yes Social History Tobacco Use Smoking status: Former Smoker Quit date: 2006 Years since quittin.0 Smokeless tobacco: Never Used Substance Use Topics Alcohol use: Yes Comment: Occasional Drug use: Not on file Current Meds amLODIPine-Benazepril 10-40 mg per capsule Take 1 capsule by mouth once daily. indomethacin (INDOCIN) 50 mg capsule Take 50 mg by mouth three times daily as needed. Multivitamin capsule Take 1 capsule by mouth once daily. omeprazole (PRILOSEC) 40 mg capsule Take 40 mg by mouth as needed. oxyCODONE ir (OXYIR) 5 mg capsule Take 5 mg by mouth every 6 hours as needed. tamsulosin (FLOMAX) 0.4 mg Take 0.4 mg by mouth once daily. Ascorbic Acid (VITAMIN C) 1,000 mg tablet Take 1,000 mg by mouth once daily. ondansetron orally disintegrating (ZOFRAN ODT) 4 mg disintegrating tablet Take 4 mg by mouth three times daily. Objective BP 142/90 (BP Site: Left Arm, BP Position: Sitting, BP Cuff Size: Regular Adult) Pulse 78 Temp 36 C (96.8 F) Ht 5' 11 (1.803 m) Wt 250 lb (113.4 kg) SpO2 98% BMI 34.87 kg/m Physical Exam Constitutional: He is oriented to person, place, and time and well-developed, well-nourished, and in no distress. Vital signs are normal. HENT: Head: Normocephalic and atraumatic. Right Ear: External ear and ear canal normal. Left Ear: External ear normal. Nose: Nose normal. Mouth/Throat: Oropharynx is clear and moist. Eyes: Pupils are equal, round, and reactive to light. Conjunctivae, EOM and lids are normal. Cardiovascular: Normal rate, regular rhythm, normal heart sounds and intact distal pulses. Pulmonary/Chest: Effort normal and breath sounds normal. Abdominal: Soft. Bowel sounds are normal. There is no abdominal tenderness. Musculoskeletal: General: Normal range of motion. Cervical back: Normal range of motion and neck supple. Neurological: He is alert and oriented to person, place, and time. He has normal reflexes. Gait normal. GCS score is 15. Skin: Skin is warm, dry and intact. Psychiatric: Mood, memory, affect and judgment normal. Nursing note and vitals reviewed. Data Reviewed: No new labs ASSESSMENT/PLAN: 1. Benign essential hypertension - ICD9: 401.1, ICD10: I10 (primary diagnosis) - suboptimal control - Continue current medication(s) - Recommended regular aerobic exercise. - Recommend home blood pressure monitoring, to bring results in on next visit - Goal of BP <130/80 - AMLODIPINE 10 MG-BENAZEPRIL 40 MG CAPSULE - CBC + DIFF 2. Mixed hyperlipidemia - ICD9: 272.2, ICD10: E78.2 - to be determined upon return of lab results - Encouraged following a low fat, low cholesterol diet. - Discussed the benefits of regular aerobic exercise and weight loss. - COMP METABOLIC PANEL - LIPID PANEL BASIC 3. Benign prostatic hyperplasia with urinary frequency - ICD9: 600.01, 788.41, ICD10: N40.1, R35.0 -chronic - Continue Flomax daily - TAMSULOSIN 0.4 MG CAPSULE 4. Idiopathic chronic gout of multiple sites without tophus - ICD9: 274.02, ICD10: M1A.09X0 - recurrent flares - Take Indomethacin as needed - INDOMETHACIN 50 MG CAPSULE 5. Screening for thyroid disorder - ICD9: V77.0, ICD10: Z13.29 - TSH BLD 6. Screening for prostate cancer - ICD9: V76.44, ICD10: Z12.5 - Check PSA - PSA/PROSTSPECAG SCRN Return in about 6 months (around 04/24/2021). Vasyl Glynn DO Attestation: Scribe Statement: I Christina Salcedo am scribing for, and in the presence of, Vasyl Glynn DO October 25, 2020 8:22 AM. Physician Statement: I, Vasyl Glynn DO, personally performed the services described in the documentation, as scribed by Christina Luke in my presence, and it is both accurate and complete October 25, 2020 8:45AM. I have confirmed and edited as necessary the past medical, family and social histories, HPI, and ROS obtained by others documented in this encounter Assessments Diagnosis Benign essential hypertension- Primary Essential hypertension, benign Mixed hyperlipidemia Benign prostatic hyperplasia with urinary frequency Idiopathic chronic gout of multiple sites without tophus Chronic gouty arthropathy without mention of tophus (tophi) Screening for thyroid disorder Screening for prostate cancer Special screening for malignant neoplasm of prostate Chief Complaint Chief Complaint Description Start Date left ring finger nodule Preliminary chief co mplaint data, not yet signed by the author as of Reason for Referral Specialty Diagnoses / Procedures Referred By Jarred ham Referred To Contact Urology Diagnoses Elevated PSA Procedures CONSULT TO UROLOGY OFFICE/OUTPATIENT NEW HIGH MDM 60-74 MINUTES Vasyl Glynn DO [address] [id number] Referral ID Status Reason Start Date Expiration Date Visits Requested Visits Authorized [id number] Authorized PCP Requested Referral 10/08/2022 10/08/2023 1 1 Additional Source Comments (unrecognized sect ion and content) No Status Records FoundNo Status Records FoundNo Status Records Found INFORMATION SOURCE (unrecogn ized section and content) DATE CREATED AUTHOR AUTHOR'S ORGANIZ ATION 12/16/2021 [facility] DATE CREATED AUTHOR AUTHOR'S ORGANIZ ATION 09/08/2023 [facility] Source Comments (unrecognize d section and content) In the event this informatio n is protected by the Federal Confidentiality of Alcohol and Drug Abuse Patient Records regulations: The Federal rules restrict any use of the information to criminally investigate or prosecute any alcohol or drug abuse patient.[facility] the event this information is protected by the Federal Confidentiality of Alcohol and Drug Abuse Patient Records regulations: The Federal rules restrict any use of the information to criminally investigate or prosecute any alcohol or drug abuse patient.[facility] the event this information is protected by the Federal Confidentiality of Alcohol and Drug Abuse Patient Records regulations: The Federal rules restrict any use of the information to criminally investigate or prosecute any alcohol or drug abuse patient.[facility] the event this information is protected by the Federal Confidentiality of Alcohol and Drug Abuse Patient Records regulations: The Federal rules restrict any use of the information to criminally investigate or prosecute any alcohol or drug abuse patient.[facility] the event this information is protected by the Federal Confidentiality of Alcohol and Drug Abuse Patient Records regulations: The Federal rules restrict any use of the information to criminally investigate or prosecute any alcohol or drug abuse patient.[facility] the event this information is protected by the Federal Confidentiality of Alcohol and Drug Abuse Patient Records regulations: The Federal rules restrict any use of the information to criminally investigate or prosecute any alcohol or drug abuse patient.[facility] the event this information is protected by the Federal Confidentiality of Alcohol and Drug Abuse Patient Records regulations: The Federal rules restrict any use of the information to criminally investigate or prosecute any alcohol or drug abuse patient.[facility] the event this information is protected by the Federal Confidentiality of Alcohol and Drug Abuse Patient Records regulations: The Federal rules restrict any use of the information to criminally investigate or prosecute any alcohol or drug abuse patient.[facility] the event this information is protected by the Federal Confidentiality of Alcohol and Drug Abuse Patient Records regulations: The Federal rules restrict any use of the information to criminally investigate or prosecute any alcohol or drug abuse patient.[facility] the event this information is protected by the Federal Confidentiality of Alcohol and Drug Abuse Patient Records regulations: The Federal rules restrict any use of the information to criminally investigate or prosecute any alcohol or drug abuse patient.[facility] the event this information is protected by the Federal Confidentiality of Alcohol and Drug Abuse Patient Records regulations: The Federal rules restrict any use of the information to criminally investigate or prosecute any alcohol or drug abuse patient.[facility] Reason for Visit (unrecogniz ed section and content) Reason Comments Results blood work Reason For Visit Description Start Date New - 1st visit with practice Preliminary reason f or visit data, not yet signed by the author as of left ring finger nodule Reason Onset Date Comments Population Health Navigation Outreach 04/02/2022 Needs to Schedule Medicare Wellness APPT with PCP Reason Comments Refill Request needs appt Reason Comments Results Reason Comments Yearly Exam Reason Comments Hypertension 6 month check up Reason Onset Date Comments Refill Request 08/10/2023 Reason Comments Medication Problem OSCAR did not arrive at Pharmacy on 09/02/23 needs resent kin. Telephone Encounter - Mirta Javier - 11/21/2020 11:03 AM ESTTelephone Encounter - Mirta Javier - 11/21/2020 11:00 AM EST Miscellaneous Notes (unrecog nized section and content) Patient advised, gave the number to call and schedule. Patient expressed understanding. ----- Message from Vasyl Glynn sent at 11/21/2020 10:17 AM EST ----- Psa mildly melevated should see uro ordered. Low chol diet documented in this encounter Care Teams (unrecognized sec tion and content) Supervisor Fleshing Relationship Specialty Start Date End Date Vasyl Glynn DO [address] [place] [address] PCP - General Family Medicine 10/25/20 Supervisor Fleshing Relationship Specialty Start Date End Date Vasyl Glynn, DO [address] [place] [id number] PCP - General Family Medicine 10/25/20 Supervisor Fleshing Relationship Specialty Start Date End Date Vasyl Glynn, DO [address] [place] [id number] PCP - General Family Medicine 10/25/20 Supervisor Fleshing Relationship Specialty Start Date End Date Vasyl Glynn DO [address] [place] [id number] PCP - General Family Medicine 10/25/20 Supervisor Fleshing Relationship Specialty Start Date End Date Vasyl Glynn DO [address] [place] [address] PCP - General Family Medicine 10/25/20 FOR RECORDS PERTAINING TO PATIENTS WHO ARE OR HAVE BEEN ENROLLED IN A CHEMICAL DEPENDENCY/SUBSTANCEABUSE PROGRAM, SOME INFORMATION MAY BE OMITTED. This clinical summary was aggregated from multiple sources. Caution should be exercised in using it in the provision of clinical care. This summary normalizes information from multiple sources, and as a consequence, information in this document may materially change the coding, format and clinical context of patient data. In addition, data may be omitted in some cases. CLINICAL DECISIONS SHOULD BE BASED ON THE PRIMARY CLINICAL RECORDS. [employer] provides no warranty or guarantee of the accuracy or completeness of information in this document.
[2023-09-25 03:00] VITALS: BP 159/88; PULSE 86; RESP 18; TEMP 36.6; O2SAT 93
[2023-09-25 03:30] LABS: Hematocrit 41.5 % (40-54); Hemoglobin 14.5 g/dL (13.0-16.5); Mean Corp Hgb Conc 34.9 g/dL (32-36); Mean Corpuscular Hgb 32.9 pg (27.0-32.0); Mean Corpuscular Volume 94.1 fL (80-94); Mean Platelet Vol. 9.3 fl (6.2-12.0); Platelet Count 267 K/mm3 (150-450); RBC Distribution Width CV 11.4 % (11.6-14.6); RBC Distribution Width SD 38.9 fl (35.1-43.9); Red Blood Count 4.41 M/mm3 (4.6-6.2); White Blood Count 8.2 K/mm3 (4.4-11.0)
[2023-09-25 03:47] LABS: Anion Gap 6 (5-15); BUN 9 mg/dL (7-18); BUN/Creat Ratio 15.2 RATIO (10-20); Calcium,Total 9.1 mg/dL (8.5-10.1); Chloride 109 mmol/L (98-107); Creatinine, Serum 0.59 mg/dL (0.70-1.30); EST Glomerular Filtration Rate 145 mL/min (>60); Est Glom Filt Rate - Afr Amer 175 mL/min (>60); Estimated Creatinine Clearance 76.35 ml/min; Glucose 102 mg/dL (74-106); Potassium 3.5 mmol/L (3.5-5.1); Sodium Level 143 mmol/L (136-145)
--- NOTE | 2023-09-25 07:03 | RAD_ITS ---
EXAM: XR CHEST, 1 VIEW CLINICAL INDICATION: post thoracentesis TECHNIQUE: Frontal view of the chest. COMPARISON: 09/24/2023 FINDINGS: LUNGS AND PLEURAL SPACES: Right pleural effusion and associated airspace disease is again identified with overall similar appearance to the prior radiograph. No pneumothorax. HEART: No significant abnormality. Cardiac silhouette not enlarged. MEDIASTINUM: Central airways and mediastinal contour are unremarkable. BONES/JOINTS: Multiple right-sided rib fractures are again identified. Likely healed/chronic left-sided rib fractures. SOFT TISSUES: No significant abnormality. VASCULATURE: Atherosclerosis. RAD/Chest 1 View (Portable) IMPRESSION: 1. Right pleural effusion and associated airspace disease is again identified with overall similar appearance to the prior radiograph. 2. Multiple right-sided rib fractures are again identified. Electronically Signed: Christiano Rivero DO at 10:39 EST ,
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
[2023-09-25 07:11] VITALS: BP 152/91; PULSE 79; RESP 18; TEMP 36.3; O2SAT 94
--- NOTE | 2023-09-25 07:12 | PCM.OP.PRO ---
Procedure Report Date of Procedure: 09/25/23 THORACENTESIS NOTE Indications: Right-sided pleural effusion Consent obtained: From patient Imaging reviewed pre-procedure: Chest x-ray and CT scan Ultrasound guidance: Yes Site of procedure (R or L): Right Procedure: The patient was positioned appropriately. The site was prepped with chlorhexidine and sterilely draped. Using a 22 gauge needle 10 mL of 1% lidocaine was injected subcutaneously to raise a wheel, and then anesthetize the needle tract over the superior border of the rib. The pleural space was entered and the pleura anesthetized. An 18 gauge needle was then advanced through the anesthetized tract. Once pleural fluid was aspirated, a catheter was advanced over the needle and into the pleural space and an adequate sample of pleural fluid was removed. In total, 1100 mL of oh-colored fluid was removed from the right hemithorax. The procedure was ultimately stopped after the pleural catheter stopped draining fluid. The patient tolerated the procedure well and without complication.? Pleural fluid studies will be sent for analysis. Follow-up chest x-ray is pending. Procedures Pulmonary CF Procedures [id number]: [id number] Aspirate pleura w/o imaging
--- OUTSIDE RECORDS SUMMARY | 2023-09-25 07:32 | XMS RPT_ITS | CCD ---
Author Name Unknown Address [address] [place] [address] Organization [facility] Care Team Providers Care Digester Cook Name Role Phone Unavailable Primary Care Provider UnavailVasyl Matute Primary Care Provider Abdirahman Sierra MD Unavailable Vasyl Glynn DO Primary Care Provider Vasyl Glynn DO Primary Care [facility] er Vasyl Glynn DO Primary [facility] er VASYL GLYNN Primary Care VASYL Bowles Attending VASYL Bowles Primary Care [place] Referring DELFINA [place] TANIA Attending VASYL Bowles Primary Care VASYL Bowles Referring Sasha GLYNN [place] TAN[place] Attending Sasha GLYNN [place] Primary Care Sasha olmstead Allergies Allergy Classification Reported Allergen(s) Allergy Type Date of Onset Reaction(s) Facility (11 sources) Ibuprofen; Translations: [IBUPROFEN] Drug Allergy 11-30-2018 Unknown [facility] Work Phone: Medications Current Medications Medication [...] Chronic constipation; Translations: [Other constipation] Episodic Other lower respiratory disease (1 source) Shortness of breath; Translations: [SOB (shortness of breath)] Onset: 09-24-2023 Episodic Other nervous system disorders (1 source) Carpal tunnel syndrome; Translations: [Carpal tunnel syndrome, right upper limb] Onset: 12-18-2021 12-18-2021 Chronic Other nutritional; endocrine; and metabolic disorders (1 source) Obesity, unspecified; Translations: [Class 1 obesity with body mass index (BMI) of 34.0 to 34.9 in adult, unspecified obesity type, unspecified whether serious comorbidity present] Onset: 09-24-2023 Chronic Other nutritional; endocrine; and metabolic disorders (1 source) Body mass index (BMI) 34.0-34.9, adult; Translations: [Class 1 obesity with body mass index (BMI) of 34.0 to 34.9 in adult, unspecified obesity type, unspecified whether serious comorbidity present] Onset: 09-24-2023 Chronic Other skin disorders (1 source) Mass of skin; Translations: [Localized swelling, mass and lump, left upper limb] Onset: 12-18-2021 12-18-2021 Episodic Other upper respiratory infections (1 source) Acute maxillary sinusitis, unspecified; Translations: [Acute non-recurrent maxillary sinusitis] Onset: 09-24-2023 Episodic Unclassified (6 sources) Patient encounter status; [...] Facility 03-22-2023 11:25-0400 Body height 180.3 cm Gallant Vincent Letsmake Work Phone: [facility] 03-22-2023 11:25-0400 Body weight 111.58 kg [facility] DO Work Phone: [facility] 03-22-2023 11:25-0400 Diastolic blood pressure 80 mm[Hg] Vasyl Vincent DO Work Phone: [facility] 03-22-2023 11:25-0400 Heart rate 83 /min Gallant Vincent DO Work Phone: [facility] 03-22-2023 11:25-0400 SaO2% (BldA) [Mass fraction] 96 % Gallant Vincent DO Work Phone: [facility] 03-22-2023 11:25-0400 Systolic blood pressure 150 mm[Hg] Vasyl Vincent DO Work Phone: [facility] 10-05-2022 13:24-0500 Body height 180.3 cm Gallant Vincent DO Work Phone: [facility] 10-05-2022 13:24-0500 Body temperature 98.49 [degF] Gallant Vincent DO Work Phone: [facility] 10-05-2022 13:24-0500 Body weight 113.85 kg Vasyl Vincent DO Work Phone: [facility] 10-05-2022 13:24-0500 Diastolic blood pressure 80 mm[Hg] Gallant Vincent DO Work Phone: [facility] 10-05-2022 13:24-0500 Heart rate 71 /min Gallant Vincent DO Work Phone: [facility] 10-05-2022 13:24-0500 SaO2% (BldA) [Mass fraction] 97 % Vasyl Vincent DO Work Phone: [facility] 10-05-2022 13:24-0500 Systolic blood pressure 148 mm[Hg] Vasyl Vincent DO Work Phone: [facility] 10-25-2020 08:40-0500 BP Diastolic 90 mm[Hg] Vasyl Vincent [facility] 10-25-2020 08:40-0500 BP Systolic 142 mm[Hg] Vasyl Vincent [facility] 10-25-2020 08:12-0500 Body Temperature 96.8 [degF] [facility] 10-25-2020 08:12-0500 Body weight 113.4 kg [facility] 10-25-2020 08:12-0500 Height 180.3 cm [facility] 10-25-2020 08:12-0500 Pulse (Heart Rate) 78 /min [facility] 10-25-2020 08:12-0500 Pulse Oximetry 98 % [facility] ic NEGATED: Highlighted [id number] 10:57-0400 Body height 177.8 cm Cora Lance RN [facility] Work Phone: NEGATED: Highlighted [id number] 10:57-0400 Body height 178 cm Cora Lance RN [facility] Work Phone: NEGATED: Highlighted [id number] 10:57-0400 Body mass index (BMI) [Ratio] 36 kg/m2 Cora Lance RN [facility] Work Phone: NEGATED: Highlighted [id number] 10:57-0400 Body weight 113.4 kg Cora Lance RN [facility] Work Phone: NEGATED: Highlighted [id number] 10:57-0400 Body weight 114 kg Cora Lance RN [facility] Work Phone: Encounters Encounter Date Encounter Type Care Provider Facility Start: 09-24-2023 End: 09-24-2023 ambulatory VASYL GLYNN Facility:[facility] Start: 09-03-2023 Telephone encounter Vasyl Glynn DO Work Phone: [facility] [place] Procedures Date Procedure Procedure Detail Performing Clinician [...] edouard Start: 10-25-2020 Adult depression screening assessment [facility] Start: 01-30-2011 CONVERTED SURGICAL PATHOLOGY Berry Christine (Hist) Mari Work Phone: NEGATED: Highlighted rowStart: 12-18-2021 End: 12-18-2021 Documentation of current medications Cora Lance RN Plan of Treatment Date Care Activity Detail Author Start: 10-06-2027 Lipid 1996 panel - Serum or Plasma Lipid Screening [facility] Start: 10-06-2027 LIPID SCREEN LIPID SCREEN [facility] Start: 10-06-2027 PROSTATE CANCER SCREENING DISCUSSION PROSTATE CANCER SCREENING DISCUSSION [facility] Start: 05-29-2026 DTaP/Tdap/Td vaccine (2 - Td) DTaP/Tdap/Td vaccine (2 - Td) [facility] Work Phone: Start: 05-29-2026 Urine microalbumin profile [facility] Start: 11-19-2025 LIPID SCREEN LIPID SCREEN [facility] Start: 11-19-2025 PROSTATE CANCER SCREENING DISCUSSION PROSTATE CANCER SCREENING DISCUSSION [facility] Start: 10-06-2025 DIABETES SCREEN DIABETES SCREEN [facility] Start: 10-06-2025 Diabetes Screening Diabetes Screening [facility] Start: 04-23-2024 Colonoscopy COLONOSCOPY [facility] Start: 04-23-2024 COLORECTAL CANCER SCREENING COLORECTAL CANCER SCREENING [facility] Start: 03-22-2024 ANNUAL PCP TEAM CHRONIC DISEASE VISIT ANNUAL PCP TEAM CHRONIC DISEASE VISIT [facility] Start: 11-19-2023 DIABETES SCREEN DIABETES SCREEN [facility] Start: 10-05-2023 ANNUAL PCP TEAM CHRONIC DISEASE VISIT ANNUAL PCP TEAM CHRONIC DISEASE VISIT [facility] Start: 05-28-2023 Influenza vaccination [facility] Start: 09-27-2022 ADVANCE DIRECTIVE DISCUSSION ADVANCE DIRECTIVE DISCUSSION [facility] Start: 09-27-2022 DEPRESSION ASSESSMENT DEPRESSION ASSESSMENT [facility] Start: 09-10-2022 ANNUAL PCP TEAM CHRONIC DISEASE VISIT ANNUAL PCP TEAM CHRONIC DISEASE VISIT [facility] Start: 09-10-2022 Pneumococcal Vaccine: 65+ (2 - PCV) Pneumococcal Vaccine: 65+ (2 - PCV) [facility] Start: 09-10-2022 PNEUMOCOCCAL: 65+ (2 - PCV) PNEUMOCOCCAL: 65+ (2 - PCV) [facility] Start: 05-28-2022 Influenza vaccination INFLUENZA (#1) [facility] Start: 01-19-2022 End: 01-19-2022 Patient encounter procedure Appointment [facility] Work Phone: Start: 12-18-2021 End: 12-18-2021 Patient encounter procedure Appointment [facility] Work Phone: Start: 12-18-2021 End: 12-18-2021 Us compl joint r-t w/image documentation Musculoskeletal ultrasound- nonvascular - left upper extremity [facility] Work Phone: Start: 10-25-2021 Adult depression screening assessment DEPRESSION SCREENING [facility] Start: 09-27-2021 ADVANCE DIRECTIVE DISCUSSION ADVANCE DIRECTIVE DISCUSSION [facility] Start: 09-27-2021 DEPRESSION ASSESSMENT DEPRESSION ASSESSMENT [facility] Start: 05-28-2020 Influenza vaccination INFLUENZA (#1) [facility] Start: 10-09-2019 End: 10-09-2019 Patient encounter procedure 10/09/2019 Office Visit Urology Kyung Carter PA-C [address] [place] [address] [phone] [facility] Willie Start: 05-28-2019 Influenza vaccination Flu vaccine (#1) [facility] Work Phone: Start: 2016 RSV Vaccine (1 - 1-dose 60+ series) RSV Vaccine (1 - 1-dose 60+ series) [facility] Start: 2011 PROSTATE CANCER SCREENING DISCUSSION PROSTATE CANCER SCREENING DISCUSSION [facility] Start: 2006 Colon cancer screen colonoscopy Colon cancer screen colonoscopy [facility] Work Phone: Start: 2006 Screening for malignant neoplasm of colon [facility] Start: 2006 Shingles Vaccine (1 of 2) Shingles Vaccine (1 of 2) [facility] Work Phone: Start: 2006 SHINGRIX VACCINE (1 of 2) SHINGRIX VACCINE (1 of 2) [facility] Start: 2001 COLOGUARD (FIT-DNA) COLOGUARD (FIT-DNA) [facility] Start: [address] COLONOGRAPHY [facility] Start: 2001 DIABETES SCREEN DIABETES SCREEN [facility] Start: 2001 FECAL OCCULT BLOOD FECAL OCCULT BLOOD [facility] Start: 2001 SIGMOIDOSCOPY SIGMOIDOSCOPY [facility] Start: 1996 Diabetes screen Diabetes screen [facility] Work Phone: Start: 1996 Lipid screen Lipid screen [facility] Work Phone: Start: 1991 LIPID SCREEN LIPID SCREEN [facility] Start: 1975 Urine microalbumin profile DTAP,TDAP,TD (1 - Tdap) [facility] Start: 1974 ANNUAL PCP TEAM CHRONIC DISEASE VISIT ANNUAL PCP TEAM CHRONIC DISEASE VISIT [facility] Start: 1974 BP CONTROLLED (<130/80) BP CONTROLLED (<130/80) [facility] Start: 1974 HEPATITIS C SCREENING HEPATITIS C SCREENING [facility] Start: 1974 HIV SCREENING HIV SCREENING [facility] Start: 1971 HIV screen HIV screen [facility] Work Phone: Start: 1956 COVID-19 VACCINE (#1) COVID-19 VACCINE (#1) [facility] Start: 1956 ABDOMINAL AORTIC ANEURYSM SCREENING ABDOMINAL AORTIC ANEURYSM SCREENING [facility] Start: 1956 Creatinine monitoring Creatinine monitoring [facility] Work Phone: Start: 1956 Hepatitis C screen Hepatitis C screen [facility] Work Phone: Start: 1956 Potassium monitoring Potassium monitoring [facility] Work Phone: End: 10-25-2021 CBC W Auto Differential panel - Blood CBC + DIFF Lab Routine Benign essential hypertension 1 Occurrences starting 10/25/2020 until 10/25/[address] [facility] Immunizations Immunization Date Immunization Notes Care Provider Mag barrett 09-10-2021 pneumococcal polysaccharide vaccine, 23 valent Lucía Paganbocker [facility] 05-29-2016 tetanus toxoid, redu angel diphtheria toxoid, and acellular pertussis vaccine, adsorbed [facility] Payers Date Payer Category Payer Medicare [id number] 2021 Medicare AETNA MEDICARE A ETNA MEDICARE PPO [id number] 2021-Present [phone] [address] [place] [address] PPO [id number] 2021 Medicare [id number] 2021 Medicare [id number] 2018 Unknown BCBS BCBS - [place] x xxxxxxxxxxx 2018-Present [address] [place] [address] xxxxxxxxxxxx [id number] 2012 Unknown [employer] BLUE CARD PPO [id number] 2012-Present PPO [id number] Social History Date Type Detail Facility Tobacco smoking stat [facility] Unknown if ever smoked [facility] Start: 1955 Sex Assigned At Not on file [facility] Work Phone: Start: 10-23-2020 End: 10-05-2022 Tobacco smoking status MTIS Former smoker [facility] End: 09-27-2007 History of tobacco use Current smoker [facility] Work Phone: Start: 10-23-2020 End: 10-05-2022 Tobacco use and exposure Never used [facility] Start: 10-23-2020 End: 03-22-2023 Alcohol intake Current drinker of alcohol (finding) [facility] Work Phone: Start: 10-23-2020 Alcohol Comment Occasional [facility] Exposure to SARS-CoV -2 (event) Not sure [facility] Start: 12-18-2021 End: 12-18-2021 Assertion Unknown if ever smoked [facility] Work Phone: End: 09-27-2007 History of tobacco use Cigarette Smoker [facility] Start: 1955 Sex Assigned At Male [facility] Start: 10-05-2022 End: 03-22-2023 History of Social function [facility] Start: 10-05-2022 End: 03-22-2023 Tobacco use panel [facility] Adult Depression Screening Assessment [address] [facility] Start: 11-27-2020 Gender identity Identifies as male gender (finding) [facility] Start: 11-27-2020 Sexual orientation Heterosexual (finding) [facility] Clinical Notes 04-23-2021 to 09-03-2023 Telephone Encounter - Gricelda Bishop - 09/03/2023 11:40 AM ESTTelephone Encounter - Sharon Patel LPN - 08/10/2023 9:40 AM ESTFrtina Glynn DO - 03/22/2023 1:27 PM EDT Note Date & Type Note Facility 09-03-2023 Miscellaneous Notes Pt called stating his script for Hydrocodone-Acetaminophen (NORCO) 7.5-325 mg. Per tablet taking 1 tablet by mouth every 6 hours as needed for pain DID NOT ARRIVE AT PHARMACY AFTER APT 09/02/2023. Pt's is requesting it be resent kin because he is in pain. Resend to Dakota Bishop documented in this encounter [facility] 08-10-2023 Miscellaneous Notes Never rec'd medication [...] in the 140s/80s documented in this encounter [facility] 03-22-2023 Note HNO ID: [id number] Author: Vasyl Glynn DO Service: ? Author Type: Physician Type: Progress Notes Filed: 03/28/2023 9:31 PM Note Text: [facility] Oneyda Glynn DO [address] [place] [address] Date of Evaluation: 03/22/2023 Patient Name: Ethel Price : 1955 Chief Complaint: Patient presents [...] to light. Ne (more content not included)... [facility] 03-22-2023 History of Presen t illness Narrative Images from the original note were not included. [facility] [place] Gallant DO Vincent [address] [place] [address] Date of Evaluation: 03/22/2023 Patient Name: Ethel Price : 1955 Chief Complaint: Patient presents [...] March 22, 2023 1:27 PM. Physician Statement: IVasyl DO, personally performed the services described in the documentation, as scribed by Christina Salcedo in my presence, and it is both accurate and complete March 22, 2023 2:33 PM. documented in this encounter [facility] 10-08-2022 Miscellaneous Notes Spoke with patient and advised. States he has seen urology before. States he sees one in [place] and is part of the [facility]. He will call and schedule. Advised patient if they are part of [facility] the results will be in the system for review. Patient to call if any issues or problems getting an appointment ----- Message from Vasyl Glynn DO sent at 10/08/2022 9:25 AM EST ----- Psa up uro con documented in this encounter [facility] 10-05-2022 Note HNO ID: [id number] Author: Vasyl Glynn DO Service: ? Author Type: Physician Type: Progress Notes Filed: 10/11/2022 12:45 PM Note Text: [facility] [place] Vasyl Glynn DO [address] [place] [address] Date of Evaluation: 10/05/2022 Patient Name: Ethel Price : 1955 Chief Complaint: Patient presents with: Yearly Exam Nursing Intake: There are no exam notes on file for this visit. Subjective Mr. Price is a 67 year old male who presents with the following complaint(s): The history is provided by the patient. No vp talent management was used. Hypertension This is a chronic [...] sounds: Normal b (more content not included)... [facility] 10-05-2022 History of Presen t illness Narrative Images from the original note were not included. [facility] [place] [facility] [address] [place] [address] Date of Evaluation: 10/05/2022 Patient Name: Ethel Price : 1955 Chief Complaint: Patient presents with: Yearly Exam Nursing Intake: There are no exam notes on file for this visit. Subjective Mr. Price is a 67 year old male who presents with the following complaint(s): The history is provided by the patient. No vp talent management was used. Hypertension This is a chronic [...] up, Blood pressure check. Attestation: Scribe Statement: Lexie Salcedo am scribing for, and in the presence of, Vasyl Glynn DO October 05, 2022 1:46 PM. Physician Statement: I, Vasyl Glynn DO, personally performed the services described in the documentation, as scribed by Christina Salcedo in my presence, and it is both accurate and complete October 05, 2022 1:54 PM. documented in this encounter [facility] 09-23-2022 Miscellaneous Notes Scheduled for 10/05/2022 Patient last seen 09/10/21 and was to return in 6 months around 03/11/22. Please call and schedule patient for an appt. Thank you. documented in this encounter [facility] 04-02-2022 History of Presen t illness Narrative POPULATION HEALTH NAVIGATION OUTREACH Action/FYI Pt identified by name and : NO Outreach Outcome/Action Unable to reach patient: Left message QuickBloxt message sent Did you use a PCP flex slot to schedule this appointment? N/A Reason for Outreach Care Gap or Scheduling/Wellness visits Payer: Payor: AETNA MEDICARE / Plan: AETNA MEDICARE PPO / Product Type: PPO / [...] 2022 3:07 PM documented in this encounter [facility] 04-23-2021 Note HNO ID: [id number] Author: Mis Stover RN Service: ? Author Type: Registered Nurse Type: Nursing Progress Note Filed: 04/23/2021 10:34 AM Note Text: Patient states readiness for discharge. Assisted with dressing Dr Ribera at bedside [facility] Evaluation note There may be informa tion available, but it has not been provided by the sender. [facility] Work Phone: documented in this encounter [facility] Work Phone: Evaluation note* Diagnosis Benign prostatic hyperplasia with urinary frequency documented [facility] Diagnosis Benign essential hypertension- Primary Essential hypertension, benign Benign prostatic hyperplasia with urinary frequency Mixed hyperlipidemia Elevated PSA Elevated prostate specific antigen (PSA) Screening for thyroid disorder Screening for prostate cancer Special screening for malignant neoplasm of prostate documented in this [facility] Diagnosis Benign essential hypertension- Primary Essential hypertension, benign Benign prostatic hyperplasia with urinary frequency Mixed hyperlipidemia Chronic constipation Unspecified constipation documented in this encounter [facility] Diagnosis Benign essential hypertension Essential hypertension, benign documented in this encounter [facility]* Diagnosis Closed fracture of multiple ribs of right side, initial encounter documented in this encounter [facility]ructions[facility] information available.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 They further recommend that men who are at high risk -- such as -[place] men and men with a family history [...] area of the enlarged prostate. References National [place] of Diabetes and Digestive and Kidney Diseases. What I need to know about prostate problems Accessed 11/26/2015. National [place] of Diabetes and Digestive and Kidney Diseases. Medical tests for prostate problems Accessed 11/26/2015. Copyright 9659-[address] [facility]. All rights reserved This information is provided by the [facility] and is not intended to replace the medical advice of your doctor or health care provider. Please consult your health care provider for advice about a specific medical condition. For additional health information, please contact the Center for Consumer Health Information at the [facility] or toll-free extension [phone]. If you prefer, you may visit [email or web address] or [email or web address]. This document was last reviewed on: 2015 [...] own. References National Heart, Lung, and Blood [place]. Description of High Blood Pressure Accessed 03/01/2017. Food and Drug Administration. High Blood Pressure (Hypertension) Accessed 03/01/2017. Centers for Disease Control and Prevention. High blood pressure Accessed 03/01/2017. JNC 8 Guidelines for the Management of Hypertension in Adults. Am Fam Physician. 2014 Jun 27;90(7):503-504. aafp.org Accessed 03/01/2017. Copyright 9935-[address] [facility]. All rights reserved This information is provided by the [facility] and is not intended to replace the medical advice of your doctor or health care provider. Please consult your health care provider for advice about a specific medical condition. For additional health information, please contact the Center for Consumer Health Information at the [facility] or toll-free extension [phone]. If you prefer, you may visit [email or web address] or [email or web address]. This document was last reviewed on: 2017 index#[id number] documented in this encounter History of Present Illness * Vasyl Glynn - 10/25/2020 8:18 AM EST [facility] Vasyl Glynn DO [address] [place] [address] Date of Evaluation: 10/25/2020 Patient Name: Ethel Price : 1955 Subjective Mr. Price is a 65 year old male who presents for Rx Refills. The history is provided by the patient. No vp talent management was used. Hypertension This is a chronic [...] 04/24/2021). Vasyl Glynn DO Attestation: Scribe Statement: Lexie Salcedo am scribing [...] UROLOGY OFFICE/OUTPATIENT NEW HIGH MDM 60-74 MINUTES VincentVasyl chamberlain [address] [address] Referral ID Status Reason Start Date Expiration Date Visits Requested Visits Authorized [id number] Authorized PCP Requested Referral 10/08/2022 10/08/2023 1 1 Additional Source Comments (unrecognized sect ion and content) No Status Records FoundNo Status Records FoundNo Status Records Found INFORMATION SOURCE (unrecogn ized section and content) DATE CREATED AUTHOR AUTHOR'S ORGANIZ ATION 12/16/2021 [facility] DATE CREATED AUTHOR AUTHOR'S ORGANIZ ATION 09/25/2023 [facility] Source Comments (unrecognize d section and content) In the event this informatio n is protected by the Federal Confidentiality of Alcohol and Drug Abuse Patient Records regulations: The Federal rules restrict any use of the information to criminally investigate or prosecute any alcohol or drug abuse patient.[facility] the event this information is protected by the Federal Confidentiality of Alcohol and Drug Abuse Patient Records regulations: The Federal rules restrict any use of the information to criminally investigate or prosecute any alcohol or drug abuse patient.[facility] the event this information is protected by the Federal Confidentiality of Alcohol and Drug Abuse Patient Records regulations: The Federal rules restrict any use of the information to criminally investigate or prosecute any alcohol or drug abuse patient.[facility] the event this information is protected by the Federal Confidentiality of Alcohol and Drug Abuse Patient Records regulations: The Federal rules restrict any use of the information to criminally investigate or prosecute any alcohol or drug abuse patient.[facility] the event this information is protected by the Federal Confidentiality of Alcohol and Drug Abuse Patient Records regulations: The Federal rules restrict any use of the information to criminally investigate or prosecute any alcohol or drug abuse patient.[facility] the event this information is protected by the Federal Confidentiality of Alcohol and Drug Abuse Patient Records regulations: The Federal rules restrict any use of the information to criminally investigate or prosecute any alcohol or drug abuse patient.[facility] the event this information is protected by the Federal Confidentiality of Alcohol and Drug Abuse Patient Records regulations: The Federal rules restrict any use of the information to criminally investigate or prosecute any alcohol or drug abuse patient.[facility] the event this information is protected by the Federal Confidentiality of Alcohol and Drug Abuse Patient Records regulations: The Federal rules restrict any use of the information to criminally investigate or prosecute any alcohol or drug abuse patient.[facility] the event this information is protected by the Federal Confidentiality of Alcohol and Drug Abuse Patient Records regulations: The Federal rules restrict any use of the information to criminally investigate or prosecute any alcohol or drug abuse patient.[facility] the event this information is protected by the Federal Confidentiality of Alcohol and Drug Abuse Patient Records regulations: The Federal rules restrict any use of the information to criminally investigate or prosecute any alcohol or drug abuse patient.[facility] the event this information is protected by the Federal Confidentiality of Alcohol and Drug Abuse Patient Records regulations: The Federal rules restrict any use of the information to criminally investigate or prosecute any alcohol or drug abuse patient.[facility] Reason for Visit (unrecogniz ed section [...] Refill Request 08/10/2023 Reason Comments Medication Problem NORCO did not arrive at Pharmacy on 09/02/23 [...] Care Teams (unrecognized sec tion and content) Digester Cook Relationship Specialty Start Date End Date Vasyl Glynn DO [address] [place] [address] PCP - General Family Medicine 10/25/20 Digester Cook Relationship Specialty Start Date End Date Vasyl Glynn DO [address] [place] [address] PCP - General Family Medicine 10/25/20 Digester Cook Relationship Specialty Start Date End Date Vasyl Glynn DO [address] [place] [address] PCP - General Family Medicine 10/25/20 Digester Cook Relationship Specialty Start Date End Date Vasyl Glynn DO [address] [place] [id number] PCP - General Family Medicine 10/25/20 Digester Cook Relationship Specialty Start Date End Date Vasyl Glynn DO [address] [place] [id number] PCP - General Family Medicine 10/25/20 FOR [...] BE BASED ON THE PRIMARY CLINICAL RECORDS. [employer] provides no warranty or guarantee of the accuracy or completeness of information in this document.
[2023-09-25 08:11] LABS: Body Fluid Mononuclear WBC % 59.7 %; Body Fluid Polynuclear WBC # 0.135 10^3/uL; Body Fluid Polynuclear WBC % 40.3 %; Body Fluid Total Cells Counted 0.362 10^3/ul; Red Cell Count/Body Fluid 0.023 10^6/ul; White Blood Count/Body Fluid 0.335 10^3/uL
[2023-09-25 08:25] LABS: Glucose, Body Fluid 109 mg/dL (40-70); LDH,Body Fluid 90 Units/L (Not Establ.); Protein, Body Fluid 4.9 g/dL (Not Establ.)
[2023-09-25 08:26] LABS: Globulin 3.4 g/dL (2.2-4.2); LDH 153 U/L (87-241); Protein, Total 6.8 g/dL (6.4-8.2)
[2023-09-25 08:35] VITALS: BP 148/95; PULSE 85; RESP 16; TEMP 36.4; O2SAT 93
[2023-09-25] MEDS: amLODIPine 10 MG Tablet PO (08:40)
[2023-09-25] MEDS: Lisinopril 40 MG Tablet PO (08:40)
[2023-09-25 09:00] VITALS: O2SAT 90
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
[2023-09-25 10:41] LABS: Auto B Fluid Analyzer BKGD Ct COUNTS W/IN LIMITS (W/IN LIMITS); Lymphocytes 24 %; Macrophages 7 %; Monocytes 2 %; Neutrophil (Segs) 67 %
[2023-09-25 10:42] LABS: Appearance/Body Fluid SL CLDY; Body Fluid QC Type(s) BF1Q; Color/Body Fluid RED; Source- Body Fluid THORACENTESIS
[2023-09-26 09:47] LABS: Cytology, Body Fluid / CSF SEE PATHOLOGY REPORT
[2023-09-28 13:51] LABS: Pathologist Comment/Body Fluid Reviewed
== END 2023-09-25 09:55 | disposition home or self-care (01) ==
LOC: ED 19:19 → ICU 20:15
PROVIDERS: Internal Medicine Critical Care Medicine; Admitting Provider Hospitalist; Emergency Provider Emergency Medicine; PCP Family Medicine; Visit Provider Internal Medicine
DX: J90 Pleural effusion, not elsewhere classified (principal); S22.43XD Multiple fractures of ribs, bilateral, subsequent encounter for fracture with routine healing; W19.XXXD Unspecified fall, subsequent encounter; K21.9 Gastro-esophageal reflux disease without esophagitis; Z68.34 Body mass index [BMI] 34.0-34.9, adult; I45.10 Unspecified right bundle-branch block; E66.9 Obesity, unspecified; N40.0 Benign prostatic hyperplasia without lower urinary tract symptoms; I10 Essential (primary) hypertension; R09.02 Hypoxemia; Z87.891 Personal history of nicotine dependence; E78.5 Hyperlipidemia, unspecified; Z79.82 Long term (current) use of aspirin; Z79.899 Other long term (current) drug therapy
CPT/HCPCS: 32555; 71045; 71046; 71250; 80048; 82945; 83615; 83880; 84156; 84157; 84484; 85025; 85027; 85610; 85730; 87070; 87075; 87205; 88108; 88305; 88313; 88341; 88342; 89050; 93005; 94668; 99221; 99252; 99285; A4216; G0378; G0463

== ENCOUNTER → 2023-09-24 | Outpatient (CLI) | payer MEDICARE, SELFPAY ==
--- NOTE | 2023-09-24 11:00 | RAD_ITS ---
EXAM: XR CHEST, 2 VIEWS CLINICAL INDICATION: SOB -- WET READ TECHNIQUE: Frontal and lateral views of the chest. COMPARISON: No relevant prior studies available. FINDINGS: LUNGS AND PLEURAL SPACES: Moderate size right subpulmonic pleural effusion associated with compression atelectasis of the right middle and lower lobes of the lung. No discrete evidence of a pneumothorax. HEART: Heart is somewhat size. MEDIASTINUM: No mediastinal or hilar mass. BONES/JOINTS: Right third through ninth rib fractures are noted which appear to be acute. The right fourth rib fracture is moderately displaced. Chronic left-sided rib fractures. RAD/Chest PA and Lateral IMPRESSION: 1. Right subpulmonic pleural effusion with compression atelectasis of the right middle and lower lobes. 2. Multiple acute right-sided rib fractures involving the third through ninth ribs. Electronically Signed: Denis Jensen MD at 12:02 EST ,
== END | disposition home or self-care (01) ==
PROVIDERS: PCP Family Medicine; Referring Provider Family Medicine; Visit Provider Family Medicine
DX: R06.02 Shortness of breath (principal)
CPT/HCPCS: 71046

== ENCOUNTER → 2023-10-01 | Outpatient (CLI) | payer MEDICARE, SELFPAY ==
--- NOTE | 2023-10-01 09:16 | RAD_ITS ---
STUDY: X-RAY CHEST REASON FOR EXAM: Male, 68 years old. Shortness of breath. TECHNIQUE: Frontal and lateral views of the chest. COMPARISON: September 25, 2020 FINDINGS: Cardiomegaly, aortic tortuosity and prominent central pulmonary arteries, unchanged. Stable hyperinflation of the left lung. Moderate-sized right pleural effusion with compression atelectasis of the right middle and lower lobes, unchanged. Healed left rib fractures unchanged. No abnormality of the visualized soft tissue structures of the upper abdomen. RAD/Chest PA and Lateral IMPRESSION: Stable chest with cardiomegaly, hyperinflation of the left lung and moderate to large right pleural effusion. Electronically Signed: Walker Romero MD at 9:34 EST ,
== END | disposition home or self-care (01) ==
LOC: RAD 09:15
PROVIDERS: PCP Family Medicine; Referring Provider Nurse Practitioner Acute Care; Visit Provider Nurse Practitioner Acute Care
DX: J90 Pleural effusion, not elsewhere classified (principal)
CPT/HCPCS: 71046

== ENCOUNTER → 2023-10-06 | Outpatient (CLI) | payer MEDICARE, SELFPAY ==
--- NOTE | 2023-10-06 | FLU_PTH ---
PATHOLOGY RESULTS PATIENT: ETHEL GODWIN LOC: [facility]#:[id number] AGE/SX: 68/M ROOM: RE10/06/[address]: DAVID Howard : 1955 BED: DIS: 10/06/2023 SPEC #: [id number] RECD: 10/06/23 10:17 STATUS: SYED EZEQUIEL #: [id number] GERMAN: 10/06/23 00:[address]: Sheree Yeung NP DEPT: CYTOLOGY RECD BY: Angelica Tran ENTERED: 10/06/23 10:18 SP TYPE: Fluid OTHR DR: Dr. Guy Kaur, DO Tissues: THORACIC FLUID Procedures: Special Stain Group II Surgery Specimen Level IV Cytospin Fluid HEADER OPERATION: Ultrasound-guided thoracentesis, right PRE-OP DIAGNOSIS: Right pleural effusion TISSUE SUBMITTED: Thoracentesis fluid for cytology DIAGNOSIS CYTOLOGY Thoracentesis fluid for cytology (cytospin and cell block): Negative for malignant cells. See comment. SJ:michelle 10/07/2023 COMMENT Clinical correlation and appropriate follow up are necessary. Please make reference to previous specimen (C24-3), thoracentesis fluid for cytology with diagnosis of negative for malignant cells, CYTOLOGY STUDY Slides are reviewed. CYTOLOGY GROSS Received is 85 ml of dark yellow cloudy fluid labeled with the patient's name and and designated per the requisition as thoracentesis. Submitted for cytology preparation including cell block. / michelle 10/06/2023 TC:5 CPT: 75683, 95930
--- OUTSIDE RECORDS SUMMARY | 2023-10-06 08:27 | XMS RPT_ITS | CCD ---
Author Name Unknown Address [address] [place] [address] Organization [facility] Care Team Providers Care Technology Adoption Manager Name Role Phone Unavailable Primary Care Provider UnavailVasyl Matute Primary Care Provider Abdirahman Sierra MD Unavailable Vasyl Glynn DO Primary Care Provider Vasyl Glynn DO Primary Care [facility] er Vasyl Glynn DO Primary [facility] VASYL GLYNN Referring VASYL Bowles Primary Care VASYL Bowles Primary [facility] [place] VASYL Bowles Referring VASYL Bowles Attending VASYL Bowles Primary [facility] VASYL Bowles Attending Sasha olmstead Allergies Allergy Classification Reported Allergen(s) Allergy Type Date of Onset Reaction(s) Facility (12 sources) Ibuprofen; Translations: [IBUPROFEN] Drug Allergy 11-30-2018 Unknown [facility] Work Phone: Medications Current Medications Medication Drug Class(es) Dates Sig (Normalized) Sig (Original) amLODIPine 10 mg / benazepril hydrochloride 40 mg oral capsule (15 sources) Dihydropyridine Calcium Channel Emanuel, Angiotensin Converting Enzyme Inhibitor Start: 09-23-2023 End: 12-22-2023 take 1 capsule by mouth once daily amLODIPine-Benaze pril 10-40 mg per capsule Indications: Benign essential hypertension TAKE 1 CAPSULE BY MOUTH ONCE DAILY 90 capsule 0 09/23/2023 12/22/2023 Active Completed/Discontinued Medications Medication Drug Class(es) Dates Sig (Normalized) Sig (Original) acetaminophen 325 mg / HYDROcodone bitartrate 7.5 mg oral tablet (4 sources) Opioid Agonist Start: 09-02-2023 End: 09-06-2023 [...] Da te Episodic/Chronic Disorders of lipid metabolism (14 sources) Mixed hyperlipidemia; Translations: [Mixed hyperlipidemia] Onset: 10-25-2020 10-25-2020 Chronic Essential hypertension (16 sources) Benign essential hypertension; Translations: [Essential (primary) hypertension] Onset: 10-25-2020 10-25-2020 Chronic Gout and other crystal arthropathies (11 sources) Chronic gouty arthritis; Translations: [Primary chronic gout without tophus of multiple sites] Onset: 10-25-2020 10-25-2020 Chronic Hyperplasia of prostate (16 sources) Benign prostatic hyperplasia; Translations: [Urinary frequency due to benign prostatic hypertrophy] Onset: 11-30-2018 10-25-2020 Chronic Other fractures (1 source) Closed fracture of multiple right ribs; Translations: [Multiple fractures of ribs, right side, initial encounter for closed fracture] 09-03-2023 Episodic Other gastrointestinal disorders (1 source) Chronic constipation; Translations: [Other constipation] Episodic Other lower respiratory disease (1 source) Dyspnea; Translations: [Shortness of breath] 09-24-2023 Episodic Other lower respiratory disease (1 source) Shortness of breath; Translations: [SOB (shortness of breath)] Onset: 09-24-2023 Episodic Other nervous system disorders (1 source) Carpal tunnel syndrome; Translations: [Carpal tunnel syndrome, right upper limb] Onset: 12-18-2021 12-18-2021 Chronic Other nutritional; endocrine; and metabolic disorders (1 source) Obesity; Translations: [Obesity, unspecified] 09-24-2023 Chronic Other nutritional; endocrine; and metabolic [...] 12-18-2021 12-18-2021 Episodic Other upper respiratory infections (2 sources) Acute maxillary sinusitis; Translations: [Acute maxillary sinusitis, unspecified] Onset: 09-24-2023 09-24-2023 Episodic Unclassified (6 sources) Patient encounter [...] Time Vital Sign Value Performing Clinician Facility 09-24-2023 09:17-0500 Body height 180.3 cm [place] Vincent ERUCES Work Phone: [facility] 09-24-2023 09:17-0500 Body temperature 98.1 [degF] [facility] ERUCES Work Phone: [facility] 09-24-2023 09:17-0500 Body weight 112.04 kg Vasyl Vincent DO Work Phone: [facility] 09-24-2023 09:17-0500 Diastolic blood pressure 84 mm[Hg] Vasyl Vincent DO Work Phone: [facility] 09-24-2023 09:17-0500 Heart rate 80 /min [place] Vincent DO Work Phone: [facility] 09-24-2023 09:17-0500 SaO2% (BldA) [Mass fraction] 95 % Vasyl Vincent DO Work Phone: [facility] 09-24-2023 09:17-0500 Systolic blood pressure 144 mm[Hg] Vasyl Vincent DO Work Phone: [facility] 03-22-2023 11:25-0400 Body height 180.3 cm [place] Vincent DO Work Phone: [facility] 03-22-2023 11:25-0400 Body weight 111.58 kg [place] Vincent DO Work Phone: [facility] 03-22-2023 11:25-0400 Diastolic blood pressure 80 mm[Hg] [place] Vincent DO Work Phone: [facility] 03-22-2023 11:25-0400 Heart rate 83 /min [place] Vincent DO Work Phone: [facility] 03-22-2023 11:25-0400 SaO2% (BldA) [Mass fraction] 96 % Vasyl Vincent DO Work Phone: [facility] 03-22-2023 11:25-0400 Systolic blood pressure 150 mm[Hg] Vasyl Vincent DO Work Phone: [facility] 10-05-2022 13:24-0500 Body height 180.3 cm [place] Vincent DO Work Phone: [facility] 10-05-2022 13:24-0500 Body temperature 98.49 [degF] [place] Vincent DO Work Phone: [facility] 10-05-2022 13:24-0500 Body weight 113.85 kg [place] Vincent DO Work Phone: [facility] 10-05-2022 13:24-0500 Diastolic blood pressure 80 mm[Hg] Vasyl Vincent DO Work Phone: [facility] 10-05-2022 13:24-0500 Heart rate 71 /min [place] Vincent DO Work Phone: [facility] 10-05-2022 13:24-0500 SaO2% (BldA) [Mass fraction] 97 % [place] Vincent DO Work Phone: [facility] 10-05-2022 13:24-0500 Systolic blood pressure 148 mm[Hg] [facility] 10-25-2020 08:40-0500 BP Diastolic 90 mm[Hg] [facility] ic 10-25-2020 08:40-0500 BP Systolic 142 mm[Hg] [facility] ic 10-25-2020 08:12-0500 Body Temperature 96.8 [degF] [facility]rett 10-25-2020 08:12-0500 Body weight 113.[address] [facility] ic 10-25-2020 08:12-0500 Height 180.3 cm [facility] ic 10-25-2020 08:12-0500 Pulse (Heart Rate) 78 /min [facility] 10-25-2020 08:12-0500 Pulse Oximetry 98 % [facility] ic NEGATED: Highlighted [id number] 10:57-0400 Body height 177.8 cm Cora Lance RN [facility] Work Phone: NEGATED: Highlighted [id number] 10:57-0400 Body height 178 cm Cora Lance RN [facility] Work Phone: NEGATED: Highlighted [id number] 10:57-0400 Body mass index (BMI) [Ratio] 36 kg/m2 Cora Lance RN [facility] Work Phone: NEGATED: Highlighted [id number] 10:57-0400 Body weight 113.4 kg Cora Lance RN [facility] Work Phone: NEGATED: Highlighted [id number] 10:57-0400 Body weight 114 kg Cora Lance RN [facility] Work Phone: Encounters Encounter Date Encounter Type Care Provider Facility Start: 09-24-2023 End: 09-24-2023 ambulatory BRIGHTON FRANCIS GLYNN Facility:[facility] Start: 09-24-2023 End: 09-24-2023 Patient encounter procedure [place] Glynn DO Work Phone: [facility] [place] Procedures Date Procedure Procedure Detail Performing Clinician Start: 10-06-2022 Lipid 1996 panel - Serum or Plasma [place] Vincent DO Work Phone: Start: 12-18-2021 End: 12-18-2021 BP scrn no perf at interval Abdirahman Sierra MD Work Phone: Start: 12-18-2021 End: 12-18-2021 Calc BMI out nrm nico nof/u Abdirahman Sierra MD Work Phone: Start: 12-18-2021 End: 12-18-2021 Current tobacco non-user cad cap copd pv dm Abdirahman Sierra MD Work Phone: Start: 12-18-2021 End: 12-18-2021 Docrev cur meds by elig clin Abdirahman Sierra MD Work Phone: Start: 12-18-2021 [...] edouard Start: 10-25-2020 Adult depression screening assessment [place] Vincent Start: 01-30-2011 CONVERTED SURGICAL PATHOLOGY Berryveda Christine (Hist) Mari Work Phone: NEGATED: Highlighted rowStart: 12-18-2021 End: 12-18-2021 Documentation of current medications Cora Lance RN Plan of Treatment Date Care Activity Detail Author Start: 10-06-2027 Lipid 1996 panel - Serum or Plasma Lipid Screening [facility] Start: 10-06-2027 Lipid panel Lipid Screening [facility] Start: 10-06-2027 LIPID SCREEN LIPID SCREEN [facility] Start: 10-06-2027 PROSTATE CANCER SCREENING DISCUSSION PROSTATE CANCER SCREENING DISCUSSION [facility] Start: 10-06-2027 Prostate specific antigen measurement Prostate Cancer Screening Discussion [facility] Start: 05-29-2026 DTaP/Tdap/Td vaccine (2 - Td) DTaP/Tdap/Td vaccine (2 - Td) [facility] Work Phone: Start: 05-29-2026 Urine microalbumin profile [facility] Start: 11-19-2025 LIPID SCREEN LIPID SCREEN [facility] Start: 11-19-2025 PROSTATE CANCER SCREENING DISCUSSION PROSTATE CANCER SCREENING DISCUSSION [facility] Start: 10-06-2025 DIABETES SCREEN DIABETES SCREEN [facility] Start: 10-06-2025 Diabetes Screening Diabetes Screening [facility] Start: 09-24-2024 Annual PCP Team Chronic Disease Visit Annual PCP Team Chronic Disease Visit [facility] Start: 04-23-2024 Colonoscopy COLONOSCOPY [facility] Start: 04-23-2024 COLORECTAL CANCER SCREENING COLORECTAL CANCER SCREENING [facility] Start: 04-23-2024 Screening for malignant neoplasm of colon [facility] Start: 03-22-2024 ANNUAL PCP TEAM CHRONIC DISEASE VISIT ANNUAL PCP TEAM CHRONIC DISEASE VISIT [facility] Start: 11-19-2023 DIABETES SCREEN DIABETES SCREEN [facility] Start: 10-05-2023 ANNUAL PCP TEAM CHRONIC DISEASE VISIT ANNUAL PCP TEAM CHRONIC DISEASE VISIT [facility] Start: 09-27-2023 Advance Directive Discussion Advance Directive Discussion [facility] Start: 09-27-2023 Depression Assessment Depression Assessment [facility] Start: 05-28-2023 Influenza vaccination [facility] Start: 09-27-2022 ADVANCE DIRECTIVE DISCUSSION ADVANCE DIRECTIVE DISCUSSION [facility] Start: 09-27-2022 DEPRESSION ASSESSMENT DEPRESSION ASSESSMENT [facility] Start: 09-10-2022 ANNUAL PCP TEAM CHRONIC DISEASE VISIT ANNUAL PCP TEAM CHRONIC DISEASE VISIT [facility] Start: 09-10-2022 Pneumococcal Vaccine: 65+ (2 - PCV) Pneumococcal Vaccine: 65+ (2 - PCV) [facility] Start: 09-10-2022 Pneumococcal Vaccine: 65+ (2 of 2 - PCV) Pneumococcal Vaccine: 65+ (2 of 2 - PCV) [facility] Start: 09-10-2022 PNEUMOCOCCAL: 65+ (2 - PCV) PNEUMOCOCCAL: 65+ (2 - PCV) [facility] Start: 05-28-2022 Influenza vaccination INFLUENZA (#1) [facility] Start: 01-19-2022 End: 01-19-2022 Patient encounter procedure Appointment [facility] Work Phone: Start: 12-18-2021 End: 12-18-2021 Patient encounter procedure Appointment [facility] Work Phone: Start: 12-18-2021 End: 12-18-2021 Us compl joint r-t w/image documentation Musculoskeletal ultrasound- nonvascular - left upper extremity [facility] Work Phone: Start: 10-25-2021 Adult depression screening assessment DEPRESSION SCREENING [facility] Start: 09-27-2021 ADVANCE DIRECTIVE DISCUSSION ADVANCE DIRECTIVE DISCUSSION [facility] Start: 09-27-2021 DEPRESSION ASSESSMENT DEPRESSION ASSESSMENT [facility] Start: 05-28-2020 Influenza vaccination INFLUENZA (#1) [facility] Start: 10-09-2019 End: 10-09-2019 Patient encounter procedure 10/09/2019 Office Visit Urology Kyung Carter PA-C [address] [place] [address] [phone] [facility] [place] Start: 05-28-2019 Influenza vaccination Flu vaccine (#1) [facility] Work Phone: Start: 2016 RSV Vaccine (1 - 1-dose 60+ series) RSV Vaccine (1 - 1-dose 60+ series) [facility] Start: 2011 PROSTATE CANCER SCREENING DISCUSSION PROSTATE CANCER SCREENING DISCUSSION [facility] Start: 2006 Colon cancer screen colonoscopy Colon cancer screen colonoscopy [facility] Work Phone: Start: 2006 Screening for malignant neoplasm of colon [facility] Start: 2006 Shingles Vaccine (1 of 2) Shingles Vaccine (1 of 2) [facility] Work Phone: Start: 2006 SHINGRIX VACCINE (1 of 2) SHINGRIX VACCINE (1 of 2) [facility] Start: 2001 COLOGUARD (FIT-DNA) COLOGUARD (FIT-DNA) [facility] Start: [address] COLONOGRAPHY [facility] Start: 2001 DIABETES SCREEN DIABETES SCREEN [facility] Start: 2001 FECAL OCCULT BLOOD FECAL OCCULT BLOOD [facility] Start: 2001 Screening for malignant neoplasm of colon [facility] Start: 2001 SIGMOIDOSCOPY SIGMOIDOSCOPY [facility] Start: 1996 Diabetes screen Diabetes screen [facility] Work Phone: Start: 1996 Lipid screen Lipid screen [facility] Work Phone: Start: 1991 LIPID SCREEN LIPID SCREEN [facility] Start: 1975 Urine microalbumin profile DTAP,TDAP,TD (1 - Tdap) [facility] Start: 1974 ANNUAL PCP TEAM CHRONIC DISEASE VISIT ANNUAL PCP TEAM CHRONIC DISEASE VISIT [facility] Start: 1974 BP CONTROLLED (<130/80) BP CONTROLLED (<130/80) [facility] Start: 1974 HEPATITIS C SCREENING HEPATITIS C SCREENING [facility] Start: 1974 Hepatitis C screening Hepatitis C Screening [facility] Start: 1974 HIV SCREENING HIV SCREENING [facility] Start: 1971 HIV screen HIV screen [facility] Work Phone: Start: 1956 COVID-19 VACCINE (#1) COVID-19 VACCINE (#1) [facility] Start: 1956 ABDOMINAL AORTIC ANEURYSM SCREENING ABDOMINAL AORTIC ANEURYSM SCREENING [facility] Start: 1956 Abdominal aortic aneurysm screening Abdominal Aortic Aneurysm Screening [facility] Start: 1956 Creatinine monitoring Creatinine monitoring [facility] Work Phone: Start: 1956 Hepatitis C screen Hepatitis C screen [facility] Work Phone: Start: 1956 Potassium monitoring Potassium monitoring [facility] Work Phone: End: 10-25-2021 CBC W Auto Differential panel - Blood CBC + DIFF Lab Routine Benign essential hypertension 1 Occurrences starting 10/25/2020 until 10/25/2021 [facility] Immunizations Immunization Date Immunization Notes Care Provider Mag barrett 09-10-2021 pneumococcal polysaccharide vaccine, 23 valent Lucía Pack [facility] 05-29-2016 tetanus toxoid, redu angel diphtheria toxoid, and acellular pertussis vaccine, adsorbed Lucía Paganbocker [facility] Payers Date Payer Category Payer Medicare [id number] 2021 Medicare AETNA MEDICARE A ETNA MEDICARE PPO [id number] 2021-Present [phone] [address] [place] [address] PPO [id number] 2021 Medicare [id number] 2021 Medicare [id number] 2018 Unknown BCBS [place] x xxxxxxxxxxx 2018-Present [address] [place] [address] xxxxxxxxxxxx [id number] 2012 Unknown [employer] BLUE CARD PPO [id number] 2012-Present PPO [id number] Social History Date Type Detail Facility Tobacco smoking stat [facility] Unknown if ever smoked [facility] Start: 1955 Sex Assigned At Not on file [facility] Work Phone: Start: 10-23-2020 End: 10-05-2022 Tobacco smoking status DCIS Former smoker [facility] End: 09-27-2007 History of tobacco use Current smoker [facility] Work Phone: Start: 10-23-2020 End: 10-05-2022 Tobacco use and exposure Never used [facility] Start: 10-23-2020 End: 03-22-2023 Alcohol intake Current drinker of alcohol (finding) [facility] Work Phone: Start: 10-23-2020 Alcohol Comment Occasional [facility] Exposure to SARS-CoV -2 (event) Not sure [facility] Start: 12-18-2021 End: 12-18-2021 Assertion Unknown if ever smoked [facility] Work Phone: End: 09-27-2007 History of tobacco use Cigarette Smoker [facility] Start: 1955 Sex Assigned At Male [facility] Start: 10-05-2022 End: 03-22-2023 History of Social function [facility] Start: 10-05-2022 End: 03-22-2023 Tobacco use panel [facility] Adult Depression Screening Assessment 0 [facility] Start: 11-27-2020 Gender identity Identifies as male gender (finding) [facility] Start: 11-27-2020 Sexual orientation Heterosexual (finding) [facility] Clinical Notes 04-23-2021 to 10-04-2023 Vasyl Glynn DO - 09/24/2023 9:22 AM ESTTelephone Encounter - Gricelda Bishop - 09/03/2023 11:40 AM ESTTelephone Encounter - Sharon Patel, CLAM GRADER - 08/10/2023 9:40 AM EST Note Date & Type Note Facility 10-04-2023 Note HNO ID: [id number] Author: AMY GRANDE RN Service: ? Author Type: Registered Nurse Type: Progress Notes Filed: 10/04/2023 16:09 Note Text: POPULATION HEALTH NAVIGATION OUTREACH Action/FYI Patient Identified by Name and : YES, Outreach Outcome/Action Chart reviewed, patient has up coming appointment, pre visit planning for DM E, A1C and Controlling BP added to appointment note. Reason for Outreach Care Gap or Scheduling/Wellness visits Payer: Payor: [facility] MEDICARE / Plan: UHC MEDICARE ADVANTAGE PPO / Product Type: PPO / Care Gap Reviewed:: Annual Wellness visit Controlling Blood Pressure Diabetic Eye Exam HBA1C Navigation Signature: Amy Grande RN October 04, 2023 4:08 PM [facility] 10-04-2023 Note Patient Outreach (AG ACM) ETHEL GODWIN ([id number]) 1955 M Date Time Provider Department 10/04/23 AMY GRANDE [facility] During your visit today, we recorded the following information about you: Amy Grande RN 10/04/2023 4:09 PM Signed POPULATION HEALTH NAVIGATION OUTREACH Action/FYI Patient Identified by Name and : YES, Outreach Outcome/Action Chart reviewed, patient has up coming appointment, pre visit planning for DM E, A1C and Controlling BP added to appointment note. Reason for Outreach Care Gap or Scheduling/Wellness visits Payer: Payor: [facility] MEDICARE / Plan: [employer]HC MEDICARE ADVANTAGE PPO / Product Type: PPO / Care Gap Reviewed:: Annual Wellness visit Controlling Blood Pressure Diabetic Eye Exam HBA1C Navigation Signature: Amy Grande RN October 04, 2023 4:08 PM Allergies As of Date: 10/04/2023 Noted Allergy Reaction IBUPROFEN 11/30/2018 16 - Unknown Date Reviewed: 10/04/2023 Reviewed by: Vijay Chavira APRN.SENIOR CONSUMER INSIGHTS CONSULTANT - Fully Assessed Reason for Visit: Population Health Navigation Outreach [3910] Cmt: [facility] Attributed Memebr - Chart Review Prescriptions as of 10/04/2023 - albuterol HFA (PROVENTIL HFA, VENTOLIN HFA) 90 mcg/actuation inhaler Inhale 2 Puffs as instructed every 6 hours as needed for wheezing/shortness of breath. - azithromycin (ZITHROMAX Z-KELLEE) 250 mg tablet 2 tablets by mouth first day then 1 tablet the next 4 days - predniSONE (DELTASONE) 10 mg tablet Take 3 tablets by mouth for 3 days, then take 2 tablets by mouth for 3 days, then take 1 tablet by mouth for 3 days. - tamsulosin (FLOMAX) 0.4 mg TAKE 1 CAPSULE BY MOUTH ONCE DAILY - amLODIPine-Benazepril 10-40 mg per capsule TAKE 1 CAPSULE BY MOUTH ONCE DAILY - HYDROcodone-Acetaminophen (NORCO) 7.5-325 mg per tablet Take 1 tablet by mouth every 6 hours as needed for pain. - metoprolol succinate ER (TOPROL XL) 50 mg 24 hr tablet Take 1 tablet by mouth once daily. - pravastatin (PRAVACHOL) 20 mg tablet Take 1 tablet by mouth once daily. - aspirin, enteric coated (ASPIRIN, ENTERIC COATED) 81 mg EC tablet Take 81 mg by mouth once daily. - indomethacin (INDOCIN) 50 mg capsule TAKE 1 CAPSULE THREE TIMES A DAY NEEDED - Multivitamin capsule Take 1 capsule by mouth once daily. - omeprazole (PRILOSEC) 40 mg capsule Take 40 mg by mouth as needed. - ondansetron orally disintegrating (ZOFRAN ODT) 4 mg disintegrating tablet Take 4 mg by mouth three times daily. - oxyCODONE ir (OXYIR) 5 mg capsule Take 5 mg by mouth every 6 hours as needed. - Ascorbic Acid 1,000 mg tablet Take 1,000 mg by mouth once daily. Problem List As Of Date 10/04/2023 Noted Resolved Benign essential hypertension [I10] Benign prostatic hyperplasia [N40.0] Mixed hyperlipidemia [E78.2] Idiopathic chronic gout of multiple sites witho*10/25/2020 Screening for thyroid disorder [Z13.29] 10/25/2020 Screening for prostate cancer [Z12.5] 10/25/2020 Encounter Status:Closed by AMY GRANDE on 10/04/23 [facility] 09-24-2023 Note HNO ID: [id number] Author: Vasyl Glynn DO Service: ? Author Type: Physician Type: Progress Notes Filed: 09/27/2023 8:24 PM Note Text: [facility] [place] Vasyl Glynn DO [address] [place] [address] Date of Evaluation: 09/24/2023 Patient Name: Ethel Godwin : 1955 Chief Complaint: Patient presents with: Hypertension: Elevated blood pressure. Been checking at home Shortness of Breath: X 1 week Nursing Intake: There are no exam notes on file for this visit. Subjective Mr. Godwin is a 68 year old male who presents with the following complaint(s): The history is provided by the patient. No biblical languages professor was used. Hypertension This is a chronic problem. The current episode started more than 1 year ago. Associated symptoms include shortness of breath. Pertinent negatives include no chest pain, headaches or palpitations. Shortness of Breath This is a new problem. The current episode started 1 to 4 weeks ago. The problem occurs daily. The problem has been unchanged. Pertinent negatives include no chest pain, headaches or leg swelling. The symptoms are aggravated by any activity. Associated symptoms comments: Denies Chest pain or tightness. Cough This is a new problem. The cough is Productive of sputum. Associated symptoms include shortness of breath. Pertinent negatives include no chest pain, no headaches and no eye redness. Review of Systems Constitutional: Negative for fatigue and unexpected weight change. HENT: Negative for nosebleeds. Eyes: Negative for redness and visual disturbance. Respiratory: Positive for cough and shortness of breath. Negative for apnea. Cardiovascular: Negative for chest pain, palpitations and [...] Comment: Occasional Current Outpatient Medications Medication Sig tamsulosin (FLOMAX) 0.4 mg TAKE 1 CAPSULE BY MOUTH ONCE DAILY amLODIPine-Benazepril 10-40 mg per capsule TAKE 1 CAPSULE BY MOUTH ONCE DAILY metoprolol succinate ER (TOPROL XL) 50 mg 24 hr tablet Take 1 tablet by mouth once daily. aspirin, enteric coated (ASPIRIN, ENTERIC COATED) 81 mg EC tablet Take 81 mg by mouth once daily. indomethacin (INDOCIN) 50 mg capsule TAKE 1 CAPSULE THREE TIMES A DAY NEEDED Multivitamin capsule Take 1 capsule by mouth once daily. Ascorbic Acid 1,000 mg tablet Take 1,000 mg by mouth once daily. albuterol HFA (PROVENTIL HFA, VENTOLIN HFA) 90 mcg/actuation inhaler Inhale 2 Puffs as instructed every 6 hours as needed for wheezing/shortness of breath. azithromycin (ZITHROMAX Z-KELLEE) 250 mg tablet 2 tablets by mouth first day then 1 tablet the next 4 days predniSONE (DELTASONE) 10 mg tablet Take 3 tablets by mouth for 3 days, then take 2 tablets by mouth for 3 days, then take 1 tablet by mouth for 3 days. HYDROcodone-Acetaminophen (NORCO) 7.5-325 mg per tablet Take 1 tablet by mouth every 6 hours as needed for pain. (Patient not taking: Reported on 09/24/2023) pravastatin (PRAVACHOL) 20 mg tablet Take 1 [...] and ROS obtained by others. Objective BP 144/84 Pulse 80 Temp 98.1 Ht 5' 11 (1.80m) Wt 247 lb (112.0kg) SpO2 95% BMI 34.46 kg/(m2). Physical Exam Vitals and nursing note reviewed. Constitutional: General: He is not in (more content not included)... [facility] 09-24-2023 History of Presen t illness Narrative Images from the original note were not included. [facility] [address] [place] [address] Date of Evaluation: 09/24/2023 Patient Name: Ethel Godwin : 1955 Chief Complaint: Patient presents with: Hypertension: Elevated blood pressure. Been checking at home Shortness of Breath: X 1 week Nursing Intake: There are no exam notes on file for this visit. Subjective Mr. Godwin is a 68 year old male who presents with the following complaint(s): The history is provided by the patient. No biblical languages professor was used. Hypertension This is a chronic problem. The current episode started more than 1 year ago. Associated symptoms include shortness of breath. Pertinent negatives include no chest pain, headaches or palpitations. Shortness of Breath This is a new problem. The current episode started 1 to 4 weeks ago. The problem occurs daily. The problem has been unchanged. Pertinent negatives include no chest pain, headaches or leg swelling. The symptoms are aggravated by any activity. Associated symptoms comments: Denies Chest pain or tightness. Cough This is a new problem. The cough is Productive of sputum. Associated symptoms include shortness of breath. Pertinent negatives include no chest pain, no headaches and no eye redness. Review of Systems Constitutional: Negative for fatigue and unexpected weight change. HENT: Negative for nosebleeds. Eyes: Negative for redness and visual disturbance. Respiratory: Positive for cough and shortness of breath. Negative for apnea. Cardiovascular: Negative for chest pain, palpitations and [...] Comment: Occasional Current Outpatient Medications Medication Sig tamsulosin (FLOMAX) 0.4 mg TAKE 1 CAPSULE BY MOUTH ONCE DAILY amLODIPine-Benazepril 10-40 mg per capsule TAKE 1 CAPSULE BY MOUTH ONCE DAILY metoprolol succinate ER (TOPROL XL) 50 mg 24 hr tablet Take 1 tablet by mouth once daily. aspirin, enteric coated (ASPIRIN, ENTERIC COATED) 81 mg EC tablet Take 81 mg by mouth once daily. indomethacin (INDOCIN) 50 mg capsule TAKE 1 CAPSULE THREE TIMES A DAY NEEDED Multivitamin capsule Take 1 capsule by mouth once daily. Ascorbic Acid 1,000 mg tablet Take 1,000 mg by mouth once daily. albuterol HFA (PROVENTIL HFA, VENTOLIN HFA) 90 mcg/actuation inhaler Inhale 2 Puffs as instructed every 6 hours as needed for wheezing/shortness of breath. azithromycin (ZITHROMAX Z-KELLEE) 250 mg tablet 2 tablets by mouth first day then 1 tablet the next 4 days predniSONE (DELTASONE) 10 mg tablet Take 3 tablets by mouth for 3 days, then take 2 tablets by mouth for 3 days, then take 1 tablet by mouth for 3 days. HYDROcodone-Acetaminophen (NORCO) 7.5-325 mg per tablet Take 1 tablet by mouth every 6 hours as needed for pain. (Patient not taking: Reported on 09/24/2023) pravastatin (PRAVACHOL) 20 mg tablet Take 1 [...] and ROS obtained by others. Objective BP 144/84 Pulse 80 Temp 98.1 Ht 5' 11 (1.80m) Wt 247 lb (112.0kg) SpO2 95% BMI 34.46 kg/(m^2). Physical Exam Vitals and nursing note [...] Effort: Pulmonary effort is normal. Breath sounds: Examination of the right-upper field reveals decreased breath sounds. Examination of the right-middle field reveals decreased breath sounds. Decreased breath sounds present. Abdominal: General: Abdomen is flat. Bowel sounds [...] Data Reviewed: No new labs ASSESSMENT/PLAN: 1. SOB (shortness of breath) - ICD9: 786.05, ICD10: R06.02 (primary diagnosis) - Obtain STAT chest XR - Start Inhaler. - XR CHEST 2V FRONTAL/LAT - ALBUTEROL SULFATE HFA 90 MCG/ACTUATION AEROSOL INHALER 2. Benign essential hypertension - ICD9: 401.1, ICD10: I10 - Controlled - Continue current medications - Recommend home blood pressure monitoring, to bring results to next visit - Encouraged sodium restriction, DASH or Mediterranean diet - Recommend regular aerobic exercise 3. Class 1 obesity with body mass index (BMI) of 34.0 to 34.9 in adult, unspecified obesity type, unspecified whether serious comorbidity present - ICD9: 278.00, V85.34, ICD10: E66.9, Z68.34 4. Acute non-recurrent maxillary sinusitis - ICD9: 461.0, ICD10: J01.00 - Will begin treatment with as per antibiotic as written, see orders - AZITHROMYCIN 250 MG TABLET - PREDNISONE 10 MG TABLET Return if symptoms worsen or fail to improve. Vasyl Glynn DO Attestation: Scribe Statement: Lexie Salcedo am scribing for, and in the presence of, Vasyl Glynn DO September 24, 2023 9:49 AM. Physician Statement: IVasyl DO, personally performed the services described in the documentation, as scribed by Christina Salcedo in my presence, and it is both accurate and complete September 24, 2023 9:56 AM. documented in this encounter [facility] 09-03-2023 Miscellaneous Notes Pt called stating his script for Hydrocodone-Acetaminophen (NORCO) 7.5-325 mg. Per tablet taking 1 tablet by mouth every 6 hours as needed for pain DID NOT ARRIVE AT PHARMACY AFTER APT 09/02/2023. Pt's is requesting it be resent kin because he is in pain. Resend to [facility] documented in this encounter [facility] 08-10-2023 Miscellaneous Notes Never rec'd medication - [...] in the 140s/80s documented in this encounter [facility] 03-22-2023 Note HNO ID: [id number] Author: Vasyl Glynn DO Service: ? Author Type: Physician Type: Progress Notes Filed: 03/28/2023 9:31 PM Note Text: [facility] [place] Glynn DO [address] [place] [address] Date of Evaluation: 03/22/2023 Patient Name: Ethel Godwin : 1955 Chief Complaint: Patient presents with: Hypertension: 6 month check up Nursing Intake: There are no exam notes on file for this visit. Subjective Mr. Godwin is a 67 year old male who [...] to light. Ne (more content not included)... [facility] 03-22-2023 History of Presen t illness Narrative Images from the original note were not included. [facility] [place] DO Vincent [address] [place] [address] Date of Evaluation: 03/22/2023 Patient Name: Ethel Godwin : 1955 Chief Complaint: Patient presents with: Hypertension: 6 month check up Nursing Intake: There are no exam notes on file for this visit. Subjective Mr. Godwin is a 67 year old male who [...] - DOCUSATE SODIUM 100 MG CAPSULE Vasyl Glynn, DO Return in about 6 months (around [...] 2023 2:33 PM. documented in this encounter [facility] 10-08-2022 Miscellaneous Notes Spoke with patient and advised. States he has seen urology before. States he sees one in [place] and is part of the [facility]. He will call and schedule. Advised patient if they are part of [facility] the results will be in the system for review. Patient to call if any issues or problems getting an appointment ----- Message from Vasyl Glynn DO sent at 10/08/2022 9:25 AM EST ----- Psa up uro con documented in this encounter [facility] 10-05-2022 Note HNO ID: [id number] Author: Vasyl Glynn DO Service: ? Author Type: Physician Type: Progress Notes Filed: 10/11/2022 12:45 PM Note Text: [facility] Oneyda Glynn DO [address] [place] [address] Date of Evaluation: 10/05/2022 Patient Name: Ethel Godwin : 1955 Chief Complaint: Patient presents with: Yearly Exam Nursing Intake: There are no exam notes on file for this visit. Subjective Mr. Godwin is a 67 year old male who presents with the following complaint(s): The history is provided by the patient. No biblical languages professor was used. Hypertension This is a chronic [...] sounds: Normal b (more content not included)... [facility] 10-05-2022 History of Presen t illness Narrative Images from the original note were not included. [facility] [place] Vasylchong Glynn DO [address] [place] [address] Date of Evaluation: 10/05/2022 Patient Name: Ethel Godwin : 1955 Chief Complaint: Patient presents with: Yearly Exam Nursing Intake: There are no exam notes on file for this visit. Subjective Mr. Godwin is a 67 year old male who presents with the following complaint(s): The history is provided by the patient. No biblical languages professor was used. Hypertension This is a chronic [...] October 05, 2022 1:46 PM. Physician Statement: IVasyl DO, personally performed the services described in the documentation, as scribed by Christina Salcedo in my presence, and it is both accurate and complete October 05, 2022 1:54 PM. documented in this encounter [facility] 09-23-2022 Miscellaneous Notes Scheduled for 10/05/2022 Patient last seen 09/10/21 and was to return in 6 months around 03/11/22. Please call and schedule patient for an appt. Thank you. documented in this encounter [facility] 04-02-2022 History of Presen t illness Narrative POPULATION HEALTH NAVIGATION OUTREACH Action/FYI Pt identified by name and : NO Outreach Outcome/Action Unable to reach patient: Left message Setgot message sent Did you use a PCP [...] 2022 3:07 PM documented in this encounter [facility] 04-23-2021 Note HNO ID: [id number] Author: Mis Stover RN Service: ? Author Type: Registered Nurse Type: Nursing Progress Note Filed: 04/23/2021 10:34 AM Note Text: Patient states readiness for discharge. Assisted with dressing Dr Rbiera at bedside [facility] Evaluation note There may be informa tion available, but it has not been provided by the sender. [facility] Work Phone: documented in this encounter [facility] Work Phone: Evaluation note* Diagnosis Benign prostatic hyperplasia with urinary frequency [facility]* Diagnosis Benign essential hypertension- Primary Essential hypertension, benign Benign prostatic hyperplasia with urinary frequency Mixed hyperlipidemia Elevated PSA Elevated prostate specific antigen (PSA) Screening for thyroid disorder Screening for prostate cancer Special screening for malignant neoplasm of prostate [facility] Diagnosis Benign essential hypertension- Primary Essential hypertension, benign Benign prostatic hyperplasia with urinary frequency Mixed hyperlipidemia Chronic constipation Unspecified constipation [facility] Diagnosis Benign essential hypertension Essential hypertension, benign documented [facility] this encounter [facility]* Diagnosis Closed fracture of multiple ribs of right side, initial encounter documented [facility] this encounter [facility]* Diagnosis SOB (shortness of breath)- Primary Shortness of breath Benign essential hypertension Essential hypertension, benign Class 1 obesity with body mass index (BMI) of 34.0 to 34.9 in adult, unspecified obesity type, unspecified whether serious comorbidity present Acute non-recurrent maxillary sinusitis 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 They further recommend that men who are at high risk -- such as -Citizen [place] men and men with a family history [...] area of the enlarged prostate. References National [place] of Diabetes and Digestive and Kidney Diseases. What I need to know about prostate problems Accessed 11/26/2015. National [place] of Diabetes and Digestive and Kidney Diseases. Medical tests for prostate problems Accessed 11/26/2015. Copyright 9177-9968 The [facility]. All rights reserved This information is provided by the [facility] and is not intended to replace the medical advice of your doctor or health care provider. Please consult your health care provider for advice about a specific medical condition. For additional health information, please contact the Center for Consumer Health Information at the [facility] or toll-free extension [phone]. If you prefer, you may visit [email or web address] or [email or web address]. This document was last reviewed on: 2015 [...] own. References National Heart, Lung, and Blood [place]. Description of High Blood Pressure Accessed 03/01/2017. Food and Drug Administration. High Blood Pressure (Hypertension) Accessed 03/01/2017. Centers for Disease Control and Prevention. High blood pressure Accessed 03/01/2017. JNC 8 Guidelines for the Management of Hypertension in Adults. Am Fam Physician. 2013Jun 27;90(7):503-504. aafp.org Accessed 03/01/2017. Copyright 5158-4330 The [facility]. All rights reserved This information is provided by the [facility] and is not intended to replace the medical advice of your doctor or health care provider. Please consult your health care provider for advice about a specific medical condition. For additional health information, please contact the Center for Consumer Health Information at the [facility] or toll-free extension [phone]. If you prefer, you may visit [email or web address] or [email or web address]. This document was last reviewed on: 2017 index#4314 documented in this encounter History of Present Illness * Vasyl Glynn - 10/25/2020 8:18 AM EST [facility] [place] Vasyl Glynn [address] [place] [address] Date of Evaluation: 10/25/2020 Patient Name: Ethel Godwin : 1955 Subjective Mr. Godwin is a 65 year old male who presents for Rx Refills. The history is provided by the patient. No biblical languages professor was used. Hypertension This is a chronic [...] October 25, 2020 8:22 AM. Physician Statement: IVasyl DO, personally performed the [...] Elevated PSA Procedures CONSULT TO UROLOGY OFFICE/OUTPATIENT [facility] HIGH MDM 60-74 MINUTES Vasyl Glynn, [address] [place], [place] [id number] Referral ID Status Reason Start Date Expiration Date Visits Requested Visits Authorized [id number] Authorized PCP Requested Referral 10/08/2022 10/08/2023 1 1 Additional Source Comments (unrecognized sect ion and content) No Status Records FoundNo Status Records FoundNo Status Records Found INFORMATION SOURCE (unrecogn ized section and content) DATE CREATED AUTHOR AUTHOR'S ORGANIZ ATION 12/16/2021 [facility] DATE CREATED AUTHOR AUTHOR'S ORGANIZ ATION 10/05/2023 [facility] Source Comments (unrecognize d section and content) In the event this informatio n is protected by the Federal Confidentiality of Alcohol and Drug Abuse Patient Records regulations: The Federal rules restrict any use of the information to criminally investigate or prosecute any alcohol or drug abuse patient.[facility] the event this information is protected by the Federal Confidentiality of Alcohol and Drug Abuse Patient Records regulations: The Federal rules restrict any use of the information to criminally investigate or prosecute any alcohol or drug abuse patient.[facility] Healthcare[facility] the event this information is protected by the Federal Confidentiality of Alcohol and Drug Abuse Patient Records regulations: The Federal rules restrict any use of the information to criminally investigate or prosecute any alcohol or drug abuse patient.[facility] Healthcare[facility] the event this information is protected by the Federal Confidentiality of Alcohol and Drug Abuse Patient Records regulations: The Federal rules restrict any use of the information to criminally investigate or prosecute any alcohol or drug abuse patient.[facility] HealthcareIn the event this information is protected by the Federal Confidentiality of Alcohol and Drug Abuse Patient Records regulations: The Federal rules restrict any use of the information to criminally investigate or prosecute any alcohol or drug abuse patient.[facility] HealthcareIn the event this information is protected by the Federal Confidentiality of Alcohol and Drug Abuse Patient Records regulations: The Federal rules restrict any use of the information to criminally investigate or prosecute any alcohol or drug abuse patient.[facility] HealthcareIn the event this information is protected by the Federal Confidentiality of Alcohol and Drug Abuse Patient Records regulations: The Federal rules restrict any use of the information to criminally investigate or prosecute any alcohol or drug abuse patient.[facility] HealthcareIn the event this information is protected by the Federal Confidentiality of Alcohol and Drug Abuse Patient Records regulations: The Federal rules restrict any use of the information to criminally investigate or prosecute any alcohol or drug abuse patient.[facility] HealthcareIn the event this information is protected by the Federal Confidentiality of Alcohol and Drug Abuse Patient Records regulations: The Federal rules restrict any use of the information to criminally investigate or prosecute any alcohol or drug abuse patient.[facility] HealthcareIn the event this information is protected by the Federal Confidentiality of Alcohol and Drug Abuse Patient Records regulations: The Federal rules restrict any use of the information to criminally investigate or prosecute any alcohol or drug abuse patient.[facility] HealthcareIn the event this information is protected by the Federal Confidentiality of Alcohol and Drug Abuse Patient Records regulations: The Federal rules restrict any use of the information to criminally investigate or prosecute any alcohol or drug abuse patient.[facility] HealthcareIn the event this information is protected by the Federal Confidentiality of Alcohol and Drug Abuse Patient Records regulations: The Federal rules restrict any use of the information to criminally investigate or prosecute any alcohol or drug abuse patient.[facility] Reason for Visit (unrecogniz ed section and [...] at Pharmacy on 09/02/23 needs resent kin. Reason Comments Hypertension Elevated blood press ure. Been checking at home Shortness of Breath X 1 week Telephone Encounter - Mirta Javier - 11/21/2020 [...] Care Teams (unrecognized sec tion and content) Technology Adoption Manager Relationship Specialty Start Date End Date Vasyl Glynn DO [address] [place] [address] PCP - General Family Medicine 10/25/20 Technology Adoption Manager Relationship Specialty Start Date End Date Vasyl Glynn DO [address] [place] [id number] PCP - General Family Medicine 10/25/20 Technology Adoption Manager Relationship Specialty Start Date End Date Vasyl Glynn DO [address] [place] [id number] PCP - General Family Medicine 10/25/20 Technology Adoption Manager Relationship Specialty Start Date End Date Vasyl Glynn DO [address] [place] [address] PCP - General Family Medicine 10/25/20 Technology Adoption Manager Relationship Specialty Start Date End Date Vasyl Glynn DO [address] [place] [id number] PCP - General Family Medicine 10/25/20 Technology Adoption Manager Relationship Specialty Start Date End Date Vasyl Glynn DO [address] [place] [id number] PCP - General Family Medicine 10/25/20 FOR [...] BE BASED ON THE PRIMARY CLINICAL RECORDS. [facility]. provides no warranty or guarantee of the accuracy or completeness of information in this document.
[2023-10-06] MEDS: Lidocaine 2% (20 ml mdv) 20 ML Vial INFILT (08:35)
--- NOTE | 2023-10-06 08:45 | RAD_ITS ---
STUDY: X-RAY CHEST REASON FOR EXAM: Male, 68 years old. Post thora TECHNIQUE: AP inspiration and expiration views. COMPARISON: Comparison is made with prior study dated October 01, 2023. FINDINGS: Status post right thoracentesis. No evidence of pneumothorax. Right rib fractures. RAD/Chest Insp/Exp 2 View IMPRESSION: No evidence of pneumothorax following the right thoracentesis. Electronically Signed: Chico Jensen MD at 9:25 EST ,
[2023-10-06 08:57] LABS: Cytology, Body Fluid / CSF SEE PATHOLOGY REPORT
--- NOTE | 2023-10-06 08:58 | PCM.OP.PRO ---
Procedure Report Date of Procedure: 10/06/23 Assessment & Plan Assessment/Plan (1) Pleural effusion, right: PLAN: PROCEDURE: Ultrasound Guided Thoracentesis ORDERING PROVIDER: Sheree Yeung CNP INDICATION: Male, 68 years old. Right pleural effusion. PROVIDER: MARIANA Reinoso PROCEDURE: The risks, benefits, and alternatives to the procedure were explained to the patient. The specific risks of bleeding, infection, and pneumothorax requiring chest tube insertion were discussed and accepted. Written informed consent was obtained. The patient was placed in the sitting, upright position. Ultrasonographic evaluation of the bilateral lower pleural spaces was carried out. An adequate pocket was identified in the right lower pleural space.The overlying skin was prepped and draped in sterile fashion. 2% lidocaine was administered subcutaneously for local anesthesia. Under ultrasound guidance, a 5-Ethiopian thoracentesis needle/catheter system was advanced into the right posterior lower pleural fluid collection. 1580 ml of clear [place] colored fluid was drained. 100 mL of this fluid was collected and sent to the laboratory, as per requesting provider. The catheter was removed, and a sterile dressing was applied. The patient tolerated the procedure well. A chest x-ray was ordered. IMPRESSION: Successful ultrasound-guided thoracentesis of right pleural effusion. Procedures Radiology Radiology US Procedures: [id number] Thoracentesis
[2023-10-06 09:00] VITALS: BP 152/91; PULSE 79; RESP 18; TEMP 36.6; O2SAT 96
[2023-10-06 09:01] VITALS: BP 146/89; PULSE 79; RESP 18; O2SAT 95
[2023-10-06 09:03] VITALS: BP 137/76; PULSE 85; RESP 18; O2SAT 95
[2023-10-06 09:43] LABS: Body Fluid Mononuclear WBC # 0.429 10^3/uL; Body Fluid Polynuclear WBC # 0.128 10^3/uL; Body Fluid Total Cells Counted 0.682 10^3/ul; Red Cell Count/Body Fluid 0.004 10^6/ul; White Blood Count/Body Fluid 0.557 10^3/uL
[2023-10-06 09:52] LABS: Appearance/Body Fluid SL CLDY; Auto B Fluid Analyzer BKGD Ct COUNTS W/IN LIMITS (W/IN LIMITS); Color/Body Fluid YELLOW; Source- Body Fluid THORACENTESIS
[2023-10-06 10:06] LABS: LDH,Body Fluid 91 Units/L (Not Establ.); Protein, Body Fluid 4.6 g/dL (Not Establ.)
[2023-10-06 10:37] LABS: Lymphocytes 12 %; Macrophages 3 %; Monocytes 65 %; Neutrophil (Segs) 20 %
[2023-10-06 10:45] LABS: Body Fluid QC Type(s) BF1Q
[2023-10-07 13:35] LABS: Pathologist Comment/Body Fluid Reviewed
== END | disposition home or self-care (01) ==
LOC: US 07:50
PROVIDERS: PCP Family Medicine; Referring Provider Nurse Practitioner Acute Care; Visit Provider Nurse Practitioner Acute Care
DX: J90 Pleural effusion, not elsewhere classified (principal)
CPT/HCPCS: 32555; 71046; 83615; 84157; 87070; 87075; 87205; 88108; 88305; 88313; 89050